=== PATIENT | female | born 1940 | race Caucasian/White ===

== ENCOUNTER 2017-01-01 | Outpatient (CLI) | payer MEDICARE, OTHER | END 2017-01-01 18:47 | disposition critical access hospital (66) | CPT/HCPCS: A0425; A0427 ==

== ENCOUNTER 2017-01-01 19:13 | Observation (INO) | payer MEDICARE, OTHER ==
[2017-01-01] MEDS ORDERED: ASPIRIN CHEW 81 MG TABLET PO STA (21:03)
[2017-01-01] MEDS ORDERED: ASPIRIN CHEW 81 MG TABLET ONE (21:04)
[2017-01-01] MEDS ORDERED: ONDANSETRON 4 MG/2 ML VIAL IVP PRN (21:27)
[2017-01-01] MEDS ORDERED: SODIUM CHLORIDE FLUSH 0.9% 10 ML SYRINGE IVP PRN (21:27)
[2017-01-01] MEDS ORDERED: ACETAMINOPHEN 325 MG TABLET PO PRN (21:27)
[2017-01-01] MEDS: SODIUM CHLORIDE FLUSH 0.9% 10 ML SYRINGE IVP SCH (23:00)
[2017-01-02] MEDS: SODIUM CHLORIDE FLUSH 0.9% 10 ML SYRINGE IVP SCH (06:31)
[2017-01-02] MEDS ORDERED: LEVOTHYROXINE 88 MCG TABLET PO SCH (07:00)
[2017-01-02] MEDS ORDERED: ASPIRIN CHEW 81 MG TABLET PO SCH (09:00)
[2017-01-02] MEDS ORDERED: POLYETHYLENE GLYCOL 3350 17 GM PACKET PO SCH (09:00)
[2017-01-02] MEDS ORDERED: ENOXAPARIN 40 MG/0.4 ML SYRINGE SUBQ SCH (09:00)
[2017-01-02] MEDS ORDERED: ATORVASTATIN 40 MG TABLET PO SCH (21:00)
== END 2017-01-02 17:36 | disposition home or self-care (01) ==
DX: G45.9 Transient cerebral ischemic attack, unspecified (principal); R31.29 Other microscopic hematuria; E03.9 Hypothyroidism, unspecified; R60.0 Localized edema; Z85.3 Personal history of malignant neoplasm of breast; Z82.49 Family history of ischemic heart disease and other diseases of the circulatory system; Z92.3 Personal history of irradiation; Z87.891 Personal history of nicotine dependence
CPT/HCPCS: 36415; 70450; 70551; 80048; 80053; 80061; 81001; 83036; 83690; 83721; 83735; 83880; 84100; 85025; 85610; 85730; 92610; 93005; 93010; 93306; 93880; 96372; 97162; 99284; 99285; A9270; G0378; G8978; G8979; G8980; G8996; G8997; G8998; J1650

== ENCOUNTER 2017-01-29 14:32 | Outpatient (CLI) | payer MEDICARE, OTHER | END 2017-01-29 14:33 | disposition home or self-care (01) | DX: E55.9 Vitamin D deficiency, unspecified (principal); E03.9 Hypothyroidism, unspecified; R53.83 Other fatigue ==

== ENCOUNTER 2017-02-02 14:08 | Outpatient (CLI) | payer MEDICARE, OTHER | END 2017-02-02 14:09 | disposition home or self-care (01) | DX: M81.0 Age-related osteoporosis without current pathological fracture (principal) ==

== ENCOUNTER 2017-02-13 11:07 | Outpatient (CLI) | payer MEDICARE, OTHER | END 2017-02-13 11:08 | disposition home or self-care (01) | DX: D64.9 Anemia, unspecified (principal) ==

== ENCOUNTER 2017-04-25 11:11 | Outpatient (CLI) | payer MEDICARE, OTHER ==
[2017-04-25 18:10] LABS: BILIRUBIN,URINE NEGATIVE (NEGATIVE)
[2017-04-25 18:13] LABS: ALBUMIN/GLOBULIN RATIO 1.4 (1.0-2.2); BILIRUBIN,TOTAL 0.8 mg/dL (0.2-1.0); CALCIUM 8.9 mg/dL (8.5-10.3); CREATININE 0.8 mg/dL (0.4-1.0); TOTAL PROTEIN 6.8 g/dL (6.7-8.2)
[2017-04-25 18:30] LABS: BASOPHILS # (AUTO) 0.1 10^3/uL (0.0-0.1); EOSINOPHILS # (AUTO) 0.2 10^3/uL (0.0-0.7); EOSINOPHILS % (AUTO) 3.9 %; HCT - HEMATOCRIT 37.9 % (37.0-47.0); LYMPHOCYTES # (AUTO) 1.3 10^3/uL (1.5-3.5); MEAN CORPUSCULAR HEMOGLOBIN 30.3 pg (27.0-31.0); MEAN CORPUSCULAR HGB CONC 34.2 g/dL (32.0-36.0); MEAN CORPUSCULAR VOLUME 88.6 fL (81.0-99.0); MEAN PLATELET VOLUME 10.1 fL (7.9-10.8); MONOCYTES # (AUTO) 0.4 10^3/uL (0.0-1.0); MONOCYTES % (AUTO) 7.3 %; NEUTROPHILS % (AUTO) 65.8 %; NUCLEATED RED BLOOD CELLS AUTO 0.1 /100WBC; RED BLOOD COUNT 4.28 10^6/uL (4.20-5.40); RED CELL DISTRIBUTION WIDTH 13.6 % (12.0-15.0)
[2017-04-25 19:09] LABS: WBC,URINE 0-3 /HPF (0-5)
== END 2017-04-25 11:12 | disposition home or self-care (01) ==
LOC: LAB.F 11:11
PROVIDERS: ATTEND Internal Medicine
DX: I49.1 Atrial premature depolarization (principal); R60.0 Localized edema; I49.9 Cardiac arrhythmia, unspecified
CPT/HCPCS: 36415; 80053; 81001; 82043; 82570; 83880; 85025

== ENCOUNTER 2017-05-09 12:32 | Outpatient (CLI) | payer MEDICARE, OTHER ==
[2017-05-09 18:30] LABS: BILIRUBIN,URINE NEGATIVE (NEGATIVE)
[2017-05-09 18:36] LABS: ALBUMIN/GLOBULIN RATIO 1.4 (1.0-2.2); BILIRUBIN,TOTAL 0.7 mg/dL (0.2-1.0); CALCIUM 8.6 mg/dL (8.5-10.3); CREATININE 0.7 mg/dL (0.4-1.0); MAGNESIUM 2.1 mg/dL (1.7-2.8); TOTAL PROTEIN 6.9 g/dL (6.7-8.2)
[2017-05-09 18:39] LABS: BASOPHILS # (AUTO) 0.1 10^3/uL (0.0-0.1); BASOPHILS % (AUTO) 1.2 %; EOSINOPHILS # (AUTO) 0.3 10^3/uL (0.0-0.7); HCT - HEMATOCRIT 37.9 % (37.0-47.0); HGB - HEMOGLOBIN 12.7 g/dL (12.0-16.0); LYMPHOCYTES # (AUTO) 1.5 10^3/uL (1.5-3.5); LYMPHOCYTES % (AUTO) 28.3 %; MEAN CORPUSCULAR HGB CONC 33.5 g/dL (32.0-36.0); MEAN CORPUSCULAR VOLUME 89.7 fL (81.0-99.0); MEAN PLATELET VOLUME 9.7 fL (7.9-10.8); MONOCYTES # (AUTO) 0.4 10^3/uL (0.0-1.0); MONOCYTES % (AUTO) 6.6 %; NEUTROPHILS # (AUTO) 3.2 10^3/uL (1.5-6.6); NEUTROPHILS % (AUTO) 58.9 %; NUCLEATED RED BLOOD CELLS AUTO 0.2 /100WBC; RED BLOOD COUNT 4.23 10^6/uL (4.20-5.40); RED CELL DISTRIBUTION WIDTH 14.1 % (12.0-15.0); UNCORRECTED WHITE BLOOD COUNT 5.4 x10^3/uL; WHITE BLOOD COUNT 5.4 x10^3/uL (4.8-10.8)
[2017-05-09 18:47] LABS: UR CULTURE IF IND NOT INDICATED; WBC,URINE 0-3 /HPF (0-5)
== END 2017-05-09 12:33 | disposition home or self-care (01) ==
LOC: LAB.F 12:32
PROVIDERS: ATTEND Physician Assistant Medical
DX: R42 Dizziness and giddiness (principal); E55.9 Vitamin D deficiency, unspecified; Z79.899 Other long term (current) drug therapy
CPT/HCPCS: 36415; 80053; 81001; 82306; 83735; 85025; 87086

== ENCOUNTER 2017-05-10 12:52 | Outpatient (CLI) | payer MEDICARE, OTHER | END 2017-05-10 12:53 | disposition home or self-care (01) | LOC: DI 12:52 | PROVIDERS: ATTEND Internal Medicine | DX: R60.0 Localized edema (principal); I34.0 Nonrheumatic mitral (valve) insufficiency | CPT/HCPCS: 93306 ==

== ENCOUNTER 2017-06-14 15:25 | Outpatient (CLI) | payer MEDICARE, OTHER ==
[2017-06-14 19:07] LABS: ALBUMIN/GLOBULIN RATIO 1.5 (1.0-2.2); BILIRUBIN,TOTAL 0.5 mg/dL (0.2-1.0); CALCIUM 8.8 mg/dL (8.5-10.3); CREATININE 0.7 mg/dL (0.4-1.0); POTASSIUM 3.9 mmol/L (3.5-5.0); TOTAL PROTEIN 7.4 g/dL (6.7-8.2)
== END 2017-06-14 15:26 | disposition home or self-care (01) ==
LOC: LAB.F 15:25
PROVIDERS: ATTEND Psychiatry & Neurology Neurology
DX: G31.84 Mild cognitive impairment of uncertain or unknown etiology (principal)
CPT/HCPCS: 36415; 80053

== ENCOUNTER 2017-08-20 13:23 | Outpatient (CLI) | payer MEDICARE, OTHER ==
[2017-08-20 18:37] LABS: ALBUMIN/GLOBULIN RATIO 1.2 (1.0-2.2); BILIRUBIN,TOTAL 0.6 mg/dL (0.2-1.0); CALCIUM 8.5 mg/dL (8.5-10.3); CREATININE 0.8 mg/dL (0.4-1.0); POTASSIUM 3.1 mmol/L (3.5-5.0); TOTAL PROTEIN 7.5 g/dL (6.7-8.2)
[2017-08-20 18:38] LABS: BASOPHILS % (AUTO) 0.4 %; HGB - HEMOGLOBIN 14.6 g/dL (12.0-16.0); LYMPHOCYTES # (AUTO) 0.8 10^3/uL (1.5-3.5); LYMPHOCYTES % (AUTO) 19.3 %; MEAN CORPUSCULAR HEMOGLOBIN 30.2 pg (27.0-31.0); MEAN CORPUSCULAR HGB CONC 34.1 g/dL (32.0-36.0); MEAN CORPUSCULAR VOLUME 88.6 fL (81.0-99.0); MEAN PLATELET VOLUME 9.5 fL (7.9-10.8); MONOCYTES # (AUTO) 0.4 10^3/uL (0.0-1.0); NEUTROPHILS % (AUTO) 71.3 %; NUCLEATED RED BLOOD CELLS AUTO 0.1 /100WBC; RED BLOOD COUNT 4.85 10^6/uL (4.20-5.40); RED CELL DISTRIBUTION WIDTH 13.4 % (12.0-15.0); UNCORRECTED WHITE BLOOD COUNT 4.7 x10^3/uL; WHITE BLOOD COUNT 4.3 x10^3/uL (4.8-10.8)
[2017-08-20 19:33] LABS: PLATELET MORPHOLOGY PLATELET CLUMPING (NORMAL)
[2017-08-20 19:34] LABS: WBC MORPHOLOGY (MULTIPLE) NORMAL APPEARANCE (NORMAL)
== END 2017-08-20 13:24 | disposition home or self-care (01) ==
LOC: LAB.F 13:23
PROVIDERS: ATTEND Internal Medicine
DX: J20.9 Acute bronchitis, unspecified (principal); R63.0 Anorexia; E55.9 Vitamin D deficiency, unspecified
CPT/HCPCS: 36415; 80053; 82306; 85025

== ENCOUNTER 2017-08-22 14:10 | Emergency (ER) | payer MEDICARE, OTHER ==
[2017-08-22 14:15] VITALS: BP 105/65
[2017-08-22] MEDS ORDERED: DEXAMETHASONE 10 MG/ML VIAL PO STA (14:31)
--- NOTE | 2017-08-22 14:35 | ED Physician Documentation ---
PD HPI URI - Stated complaint Stated Complaint: COUGH/WEAKNESS - Chief complaint Chief Complaint: Heent - History obtained from History obtained from: Patient, Family - History of Present Illness Timing - onset: How many days ago (10) Timing duration: Days (10) Timing details: Gradual onset, Still present Associated symptoms: Nasal congestion, Rhinorrhea, Dry cough, Dyspnea, Other ( fatigue). No: Fever Contributing factors: Sick contact ( sick with similar) Improves by: Rest Similar symptoms before: Has not had sx before Recently seen: Clinic - Additional information Additional information: 77-year-old female has a cough and congestion for the past 10 days. She has had a decrease in her energy and feels quite poorly. She denies fever she denies vomiting she denies sinus pain but she does have a lot of nasal congestion and dry cough. She has been taking some doxycycline for the past 3 days and this is not helped. Review of Systems Constitutional: reports: Myalgias, Fatigue. denies: Fever Eyes: denies: Decreased vision Ears: denies: Ear pain Nose: reports: Rhinorrhea / runny nose, Congestion Throat: denies: Sore throat Cardiac: denies: Chest pain / pressure, Palpitations Respiratory: reports: Dyspnea, Cough GI: denies: Abdominal Pain, Nausea, Vomiting : denies: Dysuria Skin: denies: Rash Musculoskeletal: denies: Neck pain, Back pain, Extremity pain Neurologic: reports: Generalized weakness. 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 : None HEENT: None Psych: None Musculoskeletal: None Derm: None - Past Surgical History Past Surgical History: Yes - Present Medications Home Medications: Ambulatory Orders Medication Instructions Recorded Confirmed Levothyroxine [Synthroid] 88 mcg PO DAILY 08/18/14 01/01/17 Aspirin Chewable [St Rito 81 mg PO DAILY #60 tablet 01/02/17 Aspirin] Atorvastatin [Lipitor] 40 mg PO QPM #30 tablet 01/02/17 Amox/Clav 875/125 [Augmentin] 1 each PO Q12H #20 tablet 08/22/17 - Allergies Allergies/Adverse Reactions: Allergies Allergy/AdvReac Type Severity Reaction Status Date / Time Penicillins Allergy Rash Verified 08/22/17 14:14 Sulfa (Sulfonamide Allergy Hives Verified 08/22/17 14:14 Antibiotics) - Social History Does the pt smoke?: No Smoking Status: Never smoker Does the pt drink ETOH?: No Does the pt have substance abuse?: No - Immunizations Immunizations are current?: No - POLST Patient has POLST: No PD ED PE NORMAL - Vitals Vital signs reviewed: Yes (normal ) - General General: No acute distress, Well developed/nourished, Other (vacant stare) - HEENT HEENT: Atraumatic, PERRL, EOMI, Other (both TM's are erythematous along the umbo with rounding of the umbo ) - Neck Neck: Supple, no meningeal sign, No bony TTP - Cardiac Cardiac: RRR, No murmur - Respiratory Respiratory: No respiratory distress, Other (ronchi to the right lung field .) - Abdomen Abdomen: Soft, Non tender - Back Back: No CVA TTP, No spinal TTP - Derm Derm: Normal color, Warm and dry, No rash - Extremities Extremities: No deformity, No edema - Neuro Neuro: No motor deficit, No sensory deficit, Normal speech - Psych Psych: Normal mood, Other (affect is blunted. ) Results - Vitals Vitals: Vital Signs - 24 hr 08/22/17 14:12 Temperature 36.5 C Heart Rate 70 Respiratory 20 Rate Blood Pressure 105/65 O2 Saturation 95 Oxygen O2 Source Room air - Rads (name of study) 2 view chest Radiology: Prelim report reviewed (Impression: Airway thickening without focal pneumonia.), EMP read indepedently (On my read this x-ray shows infiltrate in the right base consistent with findings on examination.), See rad report PD MEDICAL DECISION MAKING - ED course Complexity details: reviewed old records, reviewed results, re-evaluated patient , considered differential, d/w patient, d/w family ED course: 77-year-old female with an upper respiratory tract infection has rhonchi on examination and corresponding findings on her chest x-ray with a subtle infiltrate in the right base. She is administered dexamethasone orally here in the emergency department and she is given an injection of Rocephin IM. She has an allergy to penicillin and she states that she has taken amoxicillin without problem. We will switch her antibiotic to Augmentin. Departure - Departure Disposition: 01 Home, Self Care Clinical Impression: Otitis media Qualifiers: Otitis media type: suppurative Chronicity: acute Laterality: bilateral Recurrence: recurrent Spontaneous tympanic membrane rupture: without spontaneous rupture Qualified Code(s): H66.006 - Acute suppurative otitis media without spontaneous rupture of ear drum, recurrent, bilateral Pneumonia Qualifiers: Pneumonia type: due to unspecified organism Laterality: right Lung location: lower lobe of lung Qualified Code(s): J18.1 - Lobar pneumonia, unspecified organism Condition: Stable Instructions: ED Otitis Media Acute Adult, ED Pneumonia Adult Follow-Up: Vale Arndt PA-C [Primary Care Provider] - Prescriptions: Amox/Clav 875/125 [Augmentin] 1 each PO Q12H #20 tablet
[2017-08-22] MEDS ORDERED: CHERRY SYRUP 10 ML UDC PO ONE (14:40)
[2017-08-22] MEDS ORDERED: DEXAMETHASONE 10 MG/ML VIAL ONE (14:40)
[2017-08-22] MEDS ORDERED: cefTRIAXone 1 GM VIAL IM STA (15:49)
--- NOTE | 2017-08-22 15:55 | XRAY Preliminary Report ---
Exam: XR Chest 2 View PA/LAT IMPRESSION: Airway thickening without focal pneumonia. [id number]
--- NOTE | 2017-08-22 15:58 | XRAY Report ---
EXAM: CHEST RADIOGRAPHY EXAM DATE: 08/22/2017 03:35 PM. CLINICAL HISTORY: Cough and right sided rhonchi. COMPARISON: 01/10/2011. TECHNIQUE: 2 views. FINDINGS: Lungs/Pleura: Bibasilar airway thickening and interstitial prominence appears without significant int erval change. Lung volumes are normal. Negative for pleural effusion and pneumothorax. Mediastinum: Heart size is normal. There is mild aortic arch atherosclerotic calcification unchanged. Other: None. IMPRESSION: Airway thickening without focal pneumonia. [facility] Referring Provider Line: [phone] SITE ID: [id number]
[2017-08-22] MEDS ORDERED: cefTRIAXone 500 MG VIAL ONE (16:12)
[2017-08-22] MEDS ORDERED: LIDOCAINE 1% 2 ML VIAL ONE (16:12)
[2017-08-22] MEDS ORDERED: cefTRIAXone 1 GM VIAL ONE (16:16)
== END 2017-08-22 16:36 | disposition home or self-care (01) ==
LOC: ED 14:10
DX: H66.006 Acute suppurative otitis media without spontaneous rupture of ear drum, recurrent, bilateral (principal); J18.9 Pneumonia, unspecified organism; I10 Essential (primary) hypertension; E03.9 Hypothyroidism, unspecified; F03.90 Unspecified dementia, unspecified severity, without behavioral disturbance, psychotic disturbance, mood disturbance, and anxiety; Z79.82 Long term (current) use of aspirin
CPT/HCPCS: 71020; 96372; 99283; A9270

== ENCOUNTER 2017-11-08 10:13 | Outpatient (CLI) | payer MEDICARE, OTHER | END 2017-11-08 10:14 | disposition short-term general hospital (02) | LOC: EMS 10:13 | PROVIDERS: ATTEND Surgery | DX: R42 Dizziness and giddiness (principal); R20.2 Paresthesia of skin | CPT/HCPCS: A0425; A0427 ==

== ENCOUNTER 2017-11-22 10:38 | Outpatient (CLI) | payer MEDICARE, OTHER ==
[2017-11-22 11:37] LABS: CHOL/HDL RATIO 2.7 (<4.4); CHOLESTEROL 125 mg/dL; HDL CHOLESTEROL 47 mg/dL
[2017-11-22 12:02] LABS: LDL CHOLESTEROL,DIRECT 71 mg/dL; LDLD/HDL RATIO 1.5 (<4.4)
== END 2017-11-22 10:39 | disposition home or self-care (01) ==
LOC: LAB 10:38
PROVIDERS: ATTEND Physician Assistant Medical
DX: E78.5 Hyperlipidemia, unspecified (principal); G45.8 Other transient cerebral ischemic attacks and related syndromes; Z79.890 Hormone replacement therapy
CPT/HCPCS: 36415; 80061; 81599; 82670; 83721; 85613; 85730

== ENCOUNTER 2017-12-10 18:46 | Emergency (ER) | payer MEDICARE, OTHER ==
[2017-12-10 18:57] VITALS: BP 113/56
--- NOTE | 2017-12-10 19:07 | ED Physician Documentation ---
PD HPI OPHTHO - Stated complaint Stated Complaint: BLOOD IN EYE - Chief complaint Chief Complaint: Heent - History obtained from History obtained from: Patient - History of Present Illness Timing - onset: Other (She was playing cards with friends today and they noticed her eye was red. Her corroborated this. She is asymptomatic without visual changes. 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 : None HEENT: None Psych: None Musculoskeletal: None Derm: None - Past Surgical History Past Surgical History: Yes - Present Medications Home Medications: Ambulatory Orders Medication Instructions Recorded Confirmed Levothyroxine [Synthroid] 88 mcg PO DAILY 08/18/14 12/10/17 Atorvastatin [Lipitor] 40 mg PO QPM #30 tablet 01/02/17 12/10/17 Clopidogrel [Plavix] 75 mg PO DAILY 12/10/17 12/10/17 - Allergies Allergies/Adverse Reactions: Allergies Allergy/AdvReac Type Severity Reaction Status Date / Time Penicillins Allergy Rash Verified 12/10/17 18:57 Sulfa (Sulfonamide Allergy Hives Verified 12/10/17 18:57 Antibiotics) - Social History Does the pt smoke?: No Smoking Status: Never smoker Does the pt drink ETOH?: No Does the pt have substance abuse?: No - Immunizations Immunizations are current?: No - POLST Patient has POLST: No PD ED PE NORMAL - Vitals Vital signs reviewed: Yes - General General: Alert and oriented X 3, No acute distress - HEENT HEENT: PERRL, EOMI, Other (She has a right sided lateral and inferior subconjunctival hemorrhage) - Neck Neck: Supple, no meningeal sign, No bony TTP - Neuro Neuro: Alert and oriented X 3, Normal speech - Psych Psych: Normal mood, Normal affect Results - Vitals Vitals: Vital Signs - 24 hr 12/10/17 18:50 Temperature 36.3 C L Heart Rate 61 Respiratory 18 Rate Blood Pressure 113/56 L O2 Saturation 100 Oxygen O2 Source Room air Departure - Departure Disposition: 01 Home, Self Care Clinical Impression: Subconjunctival hemorrhage of right eye Condition: Good Record reviewed to determine appropriate education?: Yes Instructions: ED Eye Injury Subconj Hemorrhage
== END 2017-12-10 19:10 | disposition home or self-care (01) ==
LOC: ED 18:46
DX: H11.31 Conjunctival hemorrhage, right eye (principal); Z86.73 Personal history of transient ischemic attack (TIA), and cerebral infarction without residual deficits; Z79.02 Long term (current) use of antithrombotics/antiplatelets
CPT/HCPCS: 99282

== ENCOUNTER 2018-01-07 15:24 | Outpatient (CLI) | payer MEDICARE, OTHER ==
[2018-01-07 18:04] LABS: BASOPHILS % (AUTO) 0.5 %; EOSINOPHILS # (AUTO) 0.2 10^3/uL (0.0-0.7); EOSINOPHILS % (AUTO) 3.5 %; HGB - HEMOGLOBIN 13.2 g/dL (12.0-16.0); LYMPHOCYTES # (AUTO) 1.9 10^3/uL (1.5-3.5); LYMPHOCYTES % (AUTO) 31.9 %; MEAN CORPUSCULAR HEMOGLOBIN 29.8 pg (27.0-31.0); MEAN CORPUSCULAR HGB CONC 33.3 g/dL (32.0-36.0); MEAN CORPUSCULAR VOLUME 89.5 fL (81.0-99.0); MEAN PLATELET VOLUME 9.2 fL (7.9-10.8); MONOCYTES # (AUTO) 0.5 10^3/uL (0.0-1.0); MONOCYTES % (AUTO) 8.1 %; NEUTROPHILS # (AUTO) 3.4 10^3/uL (1.5-6.6); PLT - PLATELET COUNT 137 10^3/uL (130-450); RED BLOOD COUNT 4.42 10^6/uL (4.20-5.40); RED CELL DISTRIBUTION WIDTH 13.4 % (12.0-15.0)
== END 2018-01-07 15:25 | disposition home or self-care (01) ==
LOC: LAB.F 15:24
PROVIDERS: ATTEND Family Medicine
DX: R53.83 Other fatigue (principal)
CPT/HCPCS: 36415; 85025; 86308

== ENCOUNTER 2018-02-20 17:30 | Emergency (ER) | payer MEDICARE, OTHER ==
--- NOTE | 2018-02-20 19:04 | XRAY Preliminary Report ---
Exam: XR WRIST 4 VIEW RT IMPRESSION: Comminuted distal radius fracture without significant angulation. Ulnar styloid avulsion fracture. [facility] SITE ID: [id number]
--- NOTE | 2018-02-20 19:05 | XRAY Report ---
EXAM: RIGHT WRIST RADIOGRAPHY EXAM DATE: 02/20/2018 06:36 PM. CLINICAL HISTORY: Wrist injury. Fall on outstretched hand. COMPARISON: None. TECHNIQUE: 4 views. FINDINGS: Bones: Positive for a comminuted intra-articular fracture of the distal radius. There is no significa nt angulation. There is mild impaction. There is an avulsion fracture of the ulnar styloid. Joints: There is chronic degenerative disease with moderate joint space narrowing and sclerosis at th e first carpal metacarpal joints. No dislocation. Soft Tissues: There is soft tissue swelling around the distal forearm. IMPRESSION: Comminuted distal radius fracture without significant angulation. Ulnar styloid avulsion fracture. [facility] Referring Provider Line: [phone] SITE ID: [id number]
[2018-02-20] MEDS ORDERED: TETANUS/DIPHTHERIA/PERTUSSIS 0.5 ML SYRINGE IM ONE (20:17)
--- NOTE | 2018-02-20 20:17 | ED Physician Documentation ---
PD HPI UPPER EXT INJURY - Stated complaint Stated Complaint: R HAND INJ/ LAC - Chief complaint Chief Complaint: Ext Problem - History obtained from History obtained from: Patient - History of Present Illness Location: Left, Wrist Type of injury: Fall Where injury occurred: Home Timing - onset: Today Timing - details: Abrupt onset Worsened by: Moving, Palpating Associated symptoms: Swelling, Discolored Similar symptoms before: Has not had sx before Recently seen: Not recently seen - Additonal information Additional information: Patient is a 77 year old female who is presenting to the emergency department for wrist pain. patient was working in her garden when she was pulling a hose and tripped on a wooden plank landing on an outstretched left hand. Patient denies any other injury at this time. Review of Systems Constitutional: denies: Fever, Chills Eyes: reports: Reviewed and negative Ears: reports: Reviewed and negative Nose: reports: Reviewed and negative Throat: reports: Reviewed and negative Cardiac: reports: Reviewed and negative Respiratory: reports: Reviewed and negative GI: denies: Nausea, Vomiting : reports: Reviewed and negative Skin: reports: Abrasion (s). 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 : None HEENT: None Psych: None Musculoskeletal: None Derm: None - Past Surgical History Past Surgical History: Yes - Present Medications Home Medications: Ambulatory Orders Medication Instructions Recorded Confirmed Levothyroxine [Synthroid] 88 mcg PO DAILY 08/18/14 12/10/17 Atorvastatin [Lipitor] 40 mg PO QPM #30 tablet 01/02/17 12/10/17 Clopidogrel [Plavix] 75 mg PO DAILY 12/10/17 12/10/17 - Allergies Allergies/Adverse Reactions: Allergies Allergy/AdvReac Type Severity Reaction Status Date / Time Penicillins Allergy Rash Verified 12/10/17 18:57 Sulfa (Sulfonamide Allergy Hives Verified 12/10/17 18:57 Antibiotics) - Social History Does the pt smoke?: No Smoking Status: Never smoker Does the pt drink ETOH?: No Does the pt have substance abuse?: No - Immunizations Immunizations are current?: No - POLST Patient has POLST: No PD ED PE NORMAL - Vitals Vital signs reviewed: Yes - General General: Alert and oriented X 3 - HEENT HEENT: Atraumatic - Neck Neck: No bony TTP - Cardiac Cardiac: RRR - Respiratory Respiratory: No respiratory distress - Abdomen Abdomen: Non distended - Neuro Neuro: Alert and oriented X 3 Eye Opening: Spontaneous Motor: Obeys Commands Verbal: Oriented GCS Score: 15 PD ED PE EXPANDED - Extremities Extremities: Left wrist (tenderness and swelling of left wrist with mild angulation), Sensory intact, Vascular intact, Tendon intact Results - Vitals Vitals: Vital Signs - 24 hr 02/20/18 17:49 Temperature 36.8 C Heart Rate 64 Respiratory 18 Rate Blood Pressure 146/67 H O2 Saturation 91 L Oxygen O2 Source Room air - Rads (name of study) wrist x-ray Radiology: Final report received (comminuted fracture of left distal radius and ulnar styloid avulsion fx) PD MEDICAL DECISION MAKING - ED course Complexity details: reviewed old records, reviewed results, re-evaluated patient , considered differential, d/w patient, d/w family ED course: Patient was seen and examined at bedside. Patient had already been sent for imaging. Results were reviewed and patient had a distal radial fracture but was neurovascularly intact. Patient's abrasion was cleaned and patient was treated with tdap. Patient was placed in splint and was stable for discharge with outpatient follow up. Departure - Departure Disposition: 01 Home, Self Care Clinical Impression: Radial fracture Condition: Good Instructions: ED Fx Forearm Radius Ulna No Redu Requ Follow-Up: Piero Garcia MD [Provider Admit Priv/Credential] - Tomorrow Comments: Your symptoms today are being cause by a fracture in both your radius and ulna. You have been placed in a splint and will need to call the office of Dr. Garcia tomorrow. you should continue to ice your wrist and keep it elevated. You should return to the emergency department for loss of pulses, loss of feeling, new, worsening or uncontrollable symptoms.
[2018-02-20] MEDS ORDERED: oxyCODONE/ACET 5/325 Prepack 4 PO STA (20:40)
[2018-02-20 20:48] VITALS: BP 143/95
== END 2018-02-20 20:52 | disposition home or self-care (01) ==
LOC: ED 17:30
DX: S52.501A Unspecified fracture of the lower end of right radius, initial encounter for closed fracture (principal); W18.09XA Striking against other object with subsequent fall, initial encounter; Y93.H2 Activity, gardening and landscaping; Y92.007 Garden or yard of unspecified non-institutional (private) residence as the place of occurrence of the external cause; Z23 Encounter for immunization; F03.90 Unspecified dementia, unspecified severity, without behavioral disturbance, psychotic disturbance, mood disturbance, and anxiety; E03.9 Hypothyroidism, unspecified
CPT/HCPCS: 29125; 90471; 99283

== ENCOUNTER 2018-02-24 13:32 | Emergency (ER) | payer MEDICARE, OTHER ==
[2018-02-24 13:48] VITALS: BP 143/79
--- NOTE | 2018-02-24 13:54 | ED Physician Documentation ---
PD HPI UPPER EXT INJURY - Stated complaint Stated Complaint: R SHOULDER PX - Chief complaint Chief Complaint: Ext Problem - History obtained from History obtained from: Patient, Family () - History of Present Illness Location: Other (She fell a few days ago and broke her wrist. She realized after she got home that her shoulder was hurting quite a bit to. 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 HEENT: None Psych: None Musculoskeletal: None Derm: None - Past Surgical History Past Surgical History: Yes - Present Medications Home Medications: Ambulatory Orders Medication Instructions Recorded Confirmed Levothyroxine [Synthroid] 88 mcg PO DAILY 08/18/14 02/24/18 Atorvastatin [Lipitor] 40 mg PO QPM #30 tablet 01/02/17 02/24/18 Clopidogrel [Plavix] 75 mg PO DAILY 12/10/17 02/24/18 Oxycodone HCl/Acetaminophen 1 - 2 tab PO Q4H PRN #15 tablet 02/24/18 [Percocet 5-325 mg Tablet] - Allergies Allergies/Adverse Reactions: Allergies Allergy/AdvReac Type Severity Reaction Status Date / Time Penicillins Allergy Rash Verified 02/24/18 13:40 Sulfa (Sulfonamide Allergy Hives Verified 02/24/18 13:40 Antibiotics) - Social History Does the pt smoke?: No Smoking Status: Never smoker Does the pt drink ETOH?: No Does the pt have substance abuse?: No - Immunizations Immunizations are current?: No - POLST Patient has POLST: No PD ED PE NORMAL - Vitals Vital signs reviewed: Yes - General General: Alert and oriented X 3, No acute distress - Neck Neck: Supple, no meningeal sign, No bony TTP - Extremities Extremities: Other (Right arm is in a sugar tong splints, fingers are slightly swollen but she is warm and well perfused with normal sensation. He does have tenderness over the anterior part of the right glenohumeral joint without clavicular tenderness or deformity. She is only able to abduct a few degrees.) - Neuro Neuro: Alert and oriented X 3, Normal speech Results - Vitals Vitals: Vital Signs - 24 hr 02/24/18 02/24/18 13:36 13:48 Temperature 36.1 C L Heart Rate 60 Respiratory 16 Rate Blood Pressure 143/79 H O2 Saturation 99 Oxygen O2 Source Room air - Rads (name of study) R shoulder and humerus XRS Radiology: EMP read contemporaneously (negative) Departure - Departure Disposition: 01 Home, Self Care Clinical Impression: Radial fracture Qualifiers: Encounter type: initial encounter Radius location: distal Fracture type: closed Fracture morphology: Colles' Laterality: right Qualified Code(s): S52.531A - Colles' fracture of right radius, initial encounter for closed fracture Right shoulder strain Qualifiers: Encounter type: initial encounter Qualified Code(s): S46.911A - Strain of unspecified muscle, fascia and tendon at shoulder and upper arm level, right arm , initial encounter Condition: Good Record reviewed to determine appropriate education?: Yes Instructions: ED Fx Forearm Radius Ulna No Redu Requ Follow-Up: [facility] [Provider Group] - Tomorrow Prescriptions: Oxycodone HCl/Acetaminophen [Percocet 5-325 mg Tablet] 1 - 2 tab PO Q4H PRN #15 tablet PRN Reason: Pain Comments: Do not drink or drive while taking narcotic pain medication. Note that many narcotic pain relievers also contain Tylenol/acetaminophen. Please ensure that your total dose of acetaminophen from all sources does not exceed 3 g (3000 mg) per day. You may get constipated while on this medication. Take a stool softener such as Colace twice a day while you are on it. Also add an icag-cae-hanhzml laxative such as senna or MiraLAX on any day that you do not have a bowel movement. If you received a narcotic pain medication or sedative while in the emergency department, do not drive for the next 24 hours. Your blood pressure was elevated today on check into the emergency department. This does not mean that you have hypertension, it is a common phenomenon to come to the emergency department and have elevated blood pressure. I recommend that you see your primary care physician within the week to have it rechecked when you are feeling better.
--- NOTE | 2018-02-24 15:30 | XRAY Report ---
EXAM: RIGHT HUMERUS RADIOGRAPHY EXAM DATE: 02/24/2018 02:42 PM. CLINICAL HISTORY: Arm pain. COMPARISON: None. TECHNIQUE: 2 views. FINDINGS: Bones: Normal. No fractures or bone lesions. Joints: Alignment at the elbow and shoulder appears satisfactory. Soft Tissues: There is a cast around the right forearm and elbow. IMPRESSION: 1. No acute fracture or subluxation. Forearm cast. [facility] Referring Provider Line: [phone] SITE ID: [id number]
--- NOTE | 2018-02-24 15:30 | XRAY Preliminary Report ---
Exam: XR HUMERUS RT IMPRESSION: 1. No acute fracture or subluxation. Forearm cast. [facility] SITE ID: [id number]
--- NOTE | 2018-02-24 15:30 | XRAY Report ---
EXAM: RIGHT SHOULDER RADIOGRAPHY EXAM DATE: 02/24/2018 02:11 PM. CLINICAL HISTORY: Fall, shoulder pain. COMPARISON: None. TECHNIQUE: 3 views. FINDINGS: Bones: No fracture or bone destruction. Joints: The glenohumeral and acromioclavicular joints are normal. Soft tissues: No abnormal soft tissue calcification. IMPRESSION: Negative right shoulder. [facility] Referring Provider Line: [phone] SITE ID: [id number]
--- NOTE | 2018-02-24 15:30 | XRAY Preliminary Report ---
Exam: XR SHOULDER 3 VIEW RT IMPRESSION: Negative right shoulder. [facility] SITE ID: [id number]
== END 2018-02-24 16:47 | disposition home or self-care (01) ==
LOC: ED 13:32
DX: S52.531A Colles' fracture of right radius, initial encounter for closed fracture (principal); S46.911A Strain of unspecified muscle, fascia and tendon at shoulder and upper arm level, right arm, initial encounter; W19.XXXA Unspecified fall, initial encounter; F03.90 Unspecified dementia, unspecified severity, without behavioral disturbance, psychotic disturbance, mood disturbance, and anxiety; E03.9 Hypothyroidism, unspecified
CPT/HCPCS: 99283

== ENCOUNTER 2018-04-02 10:31 | Outpatient (CLI) | payer MEDICARE, OTHER ==
--- NOTE | 2018-04-07 16:52 | DEXA Report ---
DEXA SCAN: 04/02/2018 CLINICAL INDICATION: Osteoporosis. TECHNIQUE: Dual energy x-ray absorptiometry (DXA) was performed on a [employer] system. Regions measured are the AP spine, femoral neck, and, if needed, forearm. COMPARISON: 02/02/2017. In accordance with the International Society for Clinical Densitometry (ISCD) guidelines, data from previous exams may be reanalyzed using current recommendations and techniques. This is done to allow a more accurate basis for comparison with the current study. FINDINGS The data for the lumbar spine is as follows: REGION BMD (g/cm/cm) T-SCORE Z-SCORE L1 0.880 -2.1 -0.1 L2 0.920 -2.3 -0.3 L3 1.042 -1.3 0.7 L4 1.039 -1.3 0.7 L1-L4 0.978 -1.7 0.3 NOTE: All evaluable vertebrae are used for classification. The data for the hip is as follows: REGION BMD (g/cm/cm) T-SCORE Z-SCORE Neck 0.722 -2.3 -0.1 TOTAL 0.765 -1.9 0.1 NOTE: The femoral neck or total proximal femur, whichever is lowest, is used for classification. DEXA RESULTS SUMMARY: Spine SCAN DATE [age] BMD T-SCORE BMD CHANGE VS BASELINE BMD CHANGE VS PREVIOUS 04[age]02/2018 [age] 0.978 -- 0.051* 5.5* 02/02/2017 76.4 0[age]927 -- -- -- * Denotes significant change at the 95% confidence level. Denotes dissimilar scan types or analysis methods. DEXA RESULTS SUMMARY: Total hip SCAN DATE [age]GE BMD T-SCORE BMD CHANGE VS BASELINE BMD CHANGE VS PREVIOUS [birth year]02[birth year]2018 77.6 0.765 -- 0.017 2.3 02/02/2017 76.4 0.748 -- -- -- * Denotes significant change at the 95% confidence level. Denotes dissimilar scan types or analysis methods. IMPRESSION 1. WHO CLASSIFICATION BASED ON THE INTERNATIONAL REFERENCE STANDARD IS OSTEOPENIA. FRACTURE RISK IS INCREASED. 2. THERE HAS BEEN STATISTICALLY SIGNIFICANT INTERVAL INCREASE IN BONE MINERAL DENSITY OF THE LUMBAR SPINE FROM 02/02/2017. NO STATISTICALLY SIGNIFICANT INTERVAL CHANGE IN BONE MINERAL DENSITY OF THE LEFT HIP. RECOMMENDATION: Patients with diagnosis of osteoporosis or osteopenia should have regular bone mineral density assessment. For those eligible for Medicare, routine testing is allowed once every 2 years. Testing frequency can be increased for patients who have rapidly progressing disease or for those who are receiving medical therapy to restore bone mass. COMMENT World Health Organization (WHO) definitions for osteoporosis and osteopenia: NORMAL BMD: T-score at 1.0 or higher, fracture risk is low. OSTEOPENIA BMD: T-score between 1.0 and -2.5, fracture risk is increased. OSTEOPOROSIS BMD: T-score at 2.5 or lower, fracture risk high. National Osteoporosis Foundation recommends: 1. Obtain adequate dietary calcium (at least 1200 mg per day) and vitamin D (400 -800 international units per day). 2. Participate, as appropriate, in regular weightbearing and muscle- strengthening exercise. 3. Avoid tobacco use and reduce alcohol and caffeine intake. 4. For more detailed information see the website at www.NOF.org. TD: 04/02/2018 12:52 LIAM
== END 2018-04-02 10:32 | disposition home or self-care (01) ==
LOC: DI 10:31
PROVIDERS: ATTEND Internal Medicine Endocrinology, Diabetes & Metabolism
DX: M85.88 Other specified disorders of bone density and structure, other site (principal)
CPT/HCPCS: 77080

== ENCOUNTER 2018-04-09 08:38 | Day surgery (SDC) | payer MEDICARE, OTHER ==
[2018-04-09] MEDS ORDERED: LACTATED RINGERS 1,000 ML IV ONE (08:41)
[2018-04-09] MEDS ORDERED: fentaNYL 100 MCG/2 ML VIAL IVP ONE (10:07)
[2018-04-09] MEDS ORDERED: MIDAZOLAM 2 MG/2 ML VIAL IVP ONE (10:07)
[2018-04-09 11:16] VITALS: BP 99/55
== END 2018-04-09 08:39 | disposition home or self-care (01) ==
LOC: SDS 08:38
PROVIDERS: ATTEND Surgery
PROC: 0DBK8ZX Excision of Ascending Colon, Via Natural or Artificial Opening Endoscopic, Diagnostic (ICD-10-PCS; principal; 2018-04-09 09:45)
DX: Z12.11 Encounter for screening for malignant neoplasm of colon (principal); D12.2 Benign neoplasm of ascending colon; G47.30 Sleep apnea, unspecified; Z86.73 Personal history of transient ischemic attack (TIA), and cerebral infarction without residual deficits; Z79.82 Long term (current) use of aspirin; Z87.891 Personal history of nicotine dependence
CPT/HCPCS: 45380; J7120; 88305

== ENCOUNTER 2018-04-11 10:02 | Outpatient (CLI) | payer MEDICARE, OTHER ==
[2018-04-11 18:08] LABS: BASOPHILS # (AUTO) 0.1 10^3/uL (0.0-0.1); BASOPHILS % (AUTO) 1.1 %; EOSINOPHILS # (AUTO) 0.3 10^3/uL (0.0-0.7); EOSINOPHILS % (AUTO) 6.9 %; HGB - HEMOGLOBIN 12.6 g/dL (12.0-16.0); LYMPHOCYTES # (AUTO) 1.4 10^3/uL (1.5-3.5); LYMPHOCYTES % (AUTO) 30.5 %; MEAN CORPUSCULAR HEMOGLOBIN 29.6 pg (27.0-31.0); MEAN CORPUSCULAR HGB CONC 32.8 g/dL (32.0-36.0); MEAN CORPUSCULAR VOLUME 90.3 fL (81.0-99.0); MEAN PLATELET VOLUME 9.7 fL (7.9-10.8); MONOCYTES # (AUTO) 0.4 10^3/uL (0.0-1.0); NEUTROPHILS # (AUTO) 2.5 10^3/uL (1.5-6.6); NEUTROPHILS % (AUTO) 53.5 %; PLT - PLATELET COUNT 167 10^3/uL (130-450); RED BLOOD COUNT 4.24 10^6/uL (4.20-5.40); RED CELL DISTRIBUTION WIDTH 13.7 % (12.0-15.0); WHITE BLOOD COUNT 4.7 x10^3/uL (4.8-10.8)
[2018-04-11 18:38] LABS: ALBUMIN/GLOBULIN RATIO 1.4 (1.0-2.2); ALKALINE PHOSPHATASE 60 IU/L (42-121); ALT ALANINE AMINOTRANSFERASE 16 IU/L (10-60); AST ASPARTATE AMINOTRANSFERASE 28 IU/L (10-42); BILIRUBIN,TOTAL 0.7 mg/dL (0.2-1.0); BUN - BLOOD UREA NITROGEN 6 mg/dL (6-20); CHOL/HDL RATIO 4.1 (<4.4); CHOLESTEROL 172 mg/dL; CREATININE 0.5 mg/dL (0.4-1.0); GFR - MDRD 120 (>89); HDL CHOLESTEROL 42 mg/dL; LDL CHOLESTEROL,CALCULATED 119 mg/dL; LDL/HDL RATIO 2.8 (<4.4); TOTAL PROTEIN 6.9 g/dL (6.7-8.2); VLDL CHOLESTEROL 11 mg/dL
[2018-04-11 19:14] LABS: FREE T3 3.22 pg/mL (2.5-3.9)
[2018-04-11 19:16] LABS: THYROID STIMULATING HORMONE 1.78 uIU/mL (0.34-5.60)
[2018-04-11 19:18] LABS: FREE T4 (FREE THYROXINE) 0.89 ng/dL (0.58-1.64)
[2018-04-11 19:20] LABS: CALCIUM 8.6 mg/dL (8.5-10.3); CARBON DIOXIDE - CO2 27 mmol/L (21-32); CHLORIDE 101 mmol/L (101-111); GLUCOSE 83 mg/dL (70-100); SODIUM 136 mmol/L (135-145)
[2018-04-11 19:21] LABS: TESTOSTERONE, TOTAL < 10 ng/dL (0-50)
[2018-04-11 20:26] LABS: HB2 TOTAL 14.2 g/dL; HEMOGLOBIN A1C 0.49 g/dL; HEMOGLOBIN A1C % 5.3 % (4.6-6.2)
== END 2018-04-11 10:03 | disposition home or self-care (01) ==
LOC: LAB.F 10:02
PROVIDERS: ATTEND Naturopath
DX: Z00.00 Encounter for general adult medical examination without abnormal findings (principal); E03.9 Hypothyroidism, unspecified; E78.00 Pure hypercholesterolemia, unspecified; R53.83 Other fatigue; N95.1 Menopausal and female climacteric states; Z79.890 Hormone replacement therapy
CPT/HCPCS: 36415; 80053; 80061; 81599; 82627; 83036; 83525; 83721; 84403; 84439; 84443; 84481; 85025; 86141

== ENCOUNTER 2018-11-01 08:55 | Outpatient (CLI) | payer MEDICARE, OTHER ==
[2018-11-01 17:49] LABS: BILIRUBIN,URINE NEGATIVE (NEGATIVE); GLUCOSE, URINE (UA) NEGATIVE (NEGATIVE); KETONES,URINE (UA) NEGATIVE (NEGATIVE); LEUKOCYTE ESTERASE, URINE NEGATIVE (NEGATIVE); NITRITE,URINE NEGATIVE (NEGATIVE); OCCULT BLOOD,URINE TRACE-LYSE (NEGATIVE); PROTEIN,URINE NEGATIVE (NEGATIVE); UROBILINOGEN,URINE 0.2 (NORMAL) E.U./dL (NORMAL)
[2018-11-01 17:58] LABS: CLARITY,URINE CLEAR (CLEAR)
[2018-11-01 18:00] LABS: ALBUMIN 3.8 g/dL (3.2-5.5); ALBUMIN/GLOBULIN RATIO 1.4 (1.0-2.2); BILIRUBIN,TOTAL 0.9 mg/dL (0.2-1.0); CALCIUM 8.7 mg/dL (8.5-10.3); CREATININE 0.6 mg/dL (0.4-1.0); TOTAL PROTEIN 6.6 g/dL (6.7-8.2)
[2018-11-01 18:31] LABS: BACTERIA,URINE None Seen /HPF (None Seen); RBC,URINE 0-5 /HPF (0-5); SQUAMOUS EPITHELIAL CELL,UR FEW Squamous (<= Few)
== END 2018-11-01 08:56 | disposition home or self-care (01) ==
LOC: LAB.F 08:55
PROVIDERS: ATTEND Physician Assistant Medical
DX: E03.9 Hypothyroidism, unspecified (principal); Z79.899 Other long term (current) drug therapy
CPT/HCPCS: 36415; 80053; 81001; 84443; 87086

== ENCOUNTER 2018-11-04 09:20 | Outpatient (CLI) | payer MEDICARE, OTHER ==
[2018-11-06 13:21] LABS: THYROID PEROXIDASE ANTIBODIES <1 IU/mL (<9)
== END 2018-11-04 09:21 | disposition home or self-care (01) ==
LOC: LAB.F 09:20
PROVIDERS: ATTEND Physician Assistant Medical
DX: E23.0 Hypopituitarism (principal)
CPT/HCPCS: 36415; 84436; 84439; 84480; 84481; 86376; 86800

== ENCOUNTER 2018-12-12 09:13 | Outpatient (CLI) | payer MEDICARE, OTHER ==
[2018-12-12 10:30] LABS: ALBUMIN 3.8 g/dL (3.2-5.5); ALBUMIN/GLOBULIN RATIO 1.3 (1.0-2.2); BILIRUBIN,TOTAL 0.6 mg/dL (0.2-1.0); CALCIUM 8.9 mg/dL (8.5-10.3); CREATININE 0.6 mg/dL (0.4-1.0); TOTAL PROTEIN 6.7 g/dL (6.7-8.2)
== END 2018-12-12 09:14 | disposition home or self-care (01) ==
LOC: LAB.F 09:13
PROVIDERS: ATTEND Physician Assistant Medical
DX: E03.9 Hypothyroidism, unspecified (principal); Z79.899 Other long term (current) drug therapy
CPT/HCPCS: 36415; 80053; 84443

== ENCOUNTER 2019-02-28 09:39 | Outpatient (CLI) | payer MEDICARE, OTHER ==
[2019-02-28 17:57] LABS: THYROID STIMULATING HORMONE 13.21 uIU/mL (0.34-5.60)
[2019-02-28 18:00] LABS: FREE T4 (FREE THYROXINE) 0.67 ng/dL (0.58-1.64)
== END 2019-02-28 09:40 | disposition home or self-care (01) ==
LOC: LAB.F 09:39
PROVIDERS: ATTEND Physician Assistant Medical
DX: E03.9 Hypothyroidism, unspecified (principal); Z79.890 Hormone replacement therapy
CPT/HCPCS: 36415; 82670; 84439; 84443; 84481

== ENCOUNTER 2019-05-09 11:42 | Emergency (ER) | payer MEDICARE, OTHER ==
[2019-05-09 13:14] LABS: BASOPHILS # (AUTO) 0.1 10^3/uL (0.0-0.1); BASOPHILS % (AUTO) 0.9 %; EOSINOPHILS # (AUTO) 0.1 10^3/uL (0.0-0.7); EOSINOPHILS % (AUTO) 2.2 %; HGB - HEMOGLOBIN 12.9 g/dL (12.0-16.0); LYMPHOCYTES # (AUTO) 1.8 10^3/uL (1.5-3.5); LYMPHOCYTES % (AUTO) 30.7 %; MEAN CORPUSCULAR HEMOGLOBIN 30.4 pg (27.0-31.0); MEAN CORPUSCULAR HGB CONC 33.2 g/dL (32.0-36.0); MEAN CORPUSCULAR VOLUME 91.5 fL (81.0-99.0); MEAN PLATELET VOLUME 8.6 fL (7.9-10.8); MONOCYTES # (AUTO) 0.5 10^3/uL (0.0-1.0); MONOCYTES % (AUTO) 7.5 %; NEUTROPHILS # (AUTO) 3.5 10^3/uL (1.5-6.6); NEUTROPHILS % (AUTO) 58.7 %; PLT - PLATELET COUNT 153 10^3/uL (130-450); RED BLOOD COUNT 4.23 10^6/uL (4.20-5.40); RED CELL DISTRIBUTION WIDTH 13.9 % (12.0-15.0)
[2019-05-09 13:25] LABS: ALBUMIN 4.5 g/dL (3.2-5.5); ALBUMIN/GLOBULIN RATIO 1.4 (1.0-2.2); BILIRUBIN,TOTAL 0.7 mg/dL (0.2-1.0); CALCIUM 8.8 mg/dL (8.5-10.3); CREATININE 0.8 mg/dL (0.4-1.0); TOTAL PROTEIN 7.7 g/dL (6.7-8.2)
[2019-05-09] MEDS ORDERED: ONDANSETRON ODT 4 MG TABLET TL STA (13:42)
[2019-05-09] MEDS ORDERED: MECLIZINE 12.5 MG TABLET PO STA (13:43)
--- NOTE | 2019-05-09 13:55 | ED Physician Documentation ---
History of Present Illness - Stated complaint Stated Complaint: ELEV BP - Chief complaint Chief Complaint: Neuro - History obtained from History obtained from: Patient, Family () - History of Present Illness Timing: Today - Additonal information Additional information: The patient is a 78-year-old female who presents with dizziness that started earlier today. She also noticed that she was speaking more slowly than usual, and had associated nausea. She denies headache, visual disturbance, vomiting, numbness or weakness. Her symptoms are worse with movement of her head. She denies history of similar symptoms in the past. Past medical history is significant for TIAs 2, the last time one and a half years ago. Review of Systems Constitutional: reports: Other (dizziness). denies: Fever, Fatigue Eyes: denies: Decreased vision Ears: denies: Tinnitus/ringing Nose: denies: Congestion Throat: denies: Sore throat Cardiac: denies: Chest pain / pressure, Palpitations Respiratory: denies: Dyspnea, Cough GI: reports: Nausea. 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 : Other HEENT: None Psych: Depression, Anxiety Musculoskeletal: Osteoporosis Derm: None - Past Surgical History Past Surgical History: Yes /DIPLOMATIC INTERPRETER/TRANSLATOR: Other HEENT: Tonsil/Adenoidectomy - Present Medications Home Medications: Ambulatory Orders Medication Instructions Recorded Confirmed Levothyroxine [Synthroid] 88 mcg PO DAILY 08/18/14 04/09/18 Aspirin [Adult Aspirin Regimen] 81 mg PO DAILY 04/09/18 04/09/18 Memantine [Namenda] 5 mg PO DAILY 04/09/18 04/09/18 Meclizine HCl [Motion Sickness 25 mg PO Q6HR PRN #20 tablet 05/09/19 Relief] - Allergies Allergies/Adverse Reactions: Allergies Allergy/AdvReac Type Severity Reaction Status Date / Time Penicillins Allergy Rash Verified 02/24/18 13:40 Sulfa (Sulfonamide Allergy Hives Verified 02/24/18 13:40 Antibiotics) - Social History Does the pt smoke?: No Smoking Status: Never smoker Does the pt drink ETOH?: No Does the pt have substance abuse?: No - Immunizations Immunizations are current?: No - POLST Patient has POLST: No PD ED PE NORMAL - Vitals Vital signs reviewed: Yes (Borderline systolic hypertension.) - General General: Alert and oriented X 3, Well developed/nourished, Other (Demonstrates exacerbation of symptoms with rotation of her head to the right.) - HEENT HEENT: Atraumatic, Moist mucous membranes, Pharynx benign, Other (No nystagmus.) - Neck Neck: Supple, no meningeal sign, No adenopathy, No JVD - Cardiac Cardiac: RRR, No murmur - Respiratory Respiratory: No respiratory distress, Clear bilaterally - Abdomen Abdomen: Soft, Non tender - Back Back: No CVA TTP - Derm Derm: No rash - Extremities Extremities: No edema, No calf tenderness / cord - Neuro Neuro: Alert and oriented X 3, No motor deficit, No sensory deficit, Normal speech Eye Opening: Spontaneous Motor: Obeys Commands Verbal: Oriented GCS Score: 15 Results - Vitals Vitals: Oxygen O2 Source Room air - EKG (time done) 12:22 Rate: Rate (enter#) (56) Rhythm: NSR, Other (ectopic atrial rhythm) Hammond: LAD Intervals: Other (short MA interval) Ischemia: Normal ST segments Compare to prior EKG: Unchanged from prior EKG Computer interpretation: Disagree with computer (No ST elevation inferiorly.) - Labs Labs: Laboratory Tests 05/09/19 05/09/19 05/09/19 11:48 12:59 12:59 WBC 6.0 RBC 4.23 Hgb 12.9 Hct 38.7 MCV 91.5 MCH 30.4 MCHC 33.2 RDW 13.9 Plt Count 153 MPV 8.6 Neut # (Auto) 3.5 Lymph # (Auto) 1.8 [place] # (Auto) 0.5 Eos # (Auto) 0.1 Baso # (Auto) 0.1 Absolute Nucleated RBC 0.00 Nucleated RBC % 0.0 Sodium 139 Potassium 3.6 Chloride 98 L Carbon Dioxide 28 Anion Gap 13.0 BUN 18 Creatinine 0.8 Estimated GFR (MDRD) 69 L Glucose 93 POC Whole Bld Glucose 92 Calcium 8.8 Total Bilirubin 0.7 AST 30 ALT 20 Alkaline Phosphatase 55 Troponin I Total Protein 7.7 Albumin 4.5 Globulin 3.2 Albumin/Globulin Ratio 1.4 Lipase 33 Urine Color Urine Clarity Urine pH Ur Specific Sunbright Urine Protein Urine Glucose (UA) Urine Ketones Urine Occult Blood Urine Nitrite Urine Bilirubin Urine Urobilinogen Ur Leukocyte Esterase Ur Microscopic Review Urine Culture Comments 05/09/19 05/09/19 12:59 14:20 WBC RBC Hgb Hct MCV MCH MCHC RDW Plt Count MPV Neut # (Auto) Lymph # (Auto) [place] # (Auto) Eos # (Auto) Baso # (Auto) Absolute Nucleated RBC Nucleated RBC % Sodium Potassium Chloride Carbon Dioxide Anion Gap BUN Creatinine Estimated GFR (MDRD) Glucose POC Whole Bld Glucose Calcium Total Bilirubin AST ALT Alkaline Phosphatase Troponin I < 0.04 Total Protein Albumin Globulin Albumin/Globulin Ratio Lipase Urine Color YELLOW Urine Clarity CLEAR Urine pH 6.0 Ur Specific Sunbright <=1.005 Urine Protein NEGATIVE Urine Glucose (UA) NEGATIVE Urine Ketones NEGATIVE Urine Occult Blood TRACE-LYSE Urine Nitrite NEGATIVE Urine Bilirubin NEGATIVE Urine Urobilinogen 0.2 (NORMAL) Ur Leukocyte Esterase NEGATIVE Ur Microscopic Review NOT INDICATED Urine Culture Comments NOT INDICATED - Rads (name of study) Head CT Radiology: Prelim report reviewed, EMP read contemporaneously, See rad report (No acute intracranial abnormality.) PD MEDICAL DECISION MAKING - ED course Complexity details: reviewed results, re-evaluated patient, considered differential, d/w patient, d/w family ED course: The patient's presentation is most consistent with vertigo, most likely of a peripheral source. Benign positional vertigo is most likely. I doubt central nervous system cause for her symptoms. Head CT is normal, EKG reveals no acute ischemic or rhythm abnormalities, and CBC, chemistry panel and urinalysis are all unremarkable. Treatment in the emergency department included administration of meclizine 25 mg orally and Zofran 4 mg orally. On repeat evaluation the patient reports feeling subjectively back to normal, and demonstrates full cervical range of motion without recurrent dizziness. She is being discharged with a prescription for meclizine. I discussed with her and her the diagnosis, symptomatic treatment and outpatient follow-up, as well as potentially worrisome signs or symptoms that should prompt reevaluation in the emergency department. Departure - Departure Disposition: 01 Home, Self Care Clinical Impression: Vertigo Condition: Stable Instructions: Meclizine, ED Vertigo Unspecified Follow-Up: Vale Arndt PA-C [Primary Care Provider] - Prescriptions: Meclizine HCl [Motion Sickness Relief] 25 mg PO Q6HR PRN #20 tablet PRN Reason: Dizziness Comments: Take meclizine as prescribed if you develop recurrent symptoms. Follow-up with your primary physician within 1 to 2 weeks. Call to schedule appointment. Return to the emergency department if you develop increasing dizziness, persistent vomiting, or otherwise worsening symptoms. Discharge Date/Time: 05/09/19 15:58
--- NOTE | 2019-05-09 14:45 | CT Report ---
Reason: dizziness Procedure Date: 05/09/2019 Accession Number: [id number] / [id number] Procedure: CT - HEAD WO CPT Code: FULL RESULT: EXAM: CT HEAD EXAM DATE: 05/09/2019 02:32 PM. CLINICAL HISTORY: Dizziness. COMPARISON: HEAD W/O 01/01/2017 8:26 PM. TECHNIQUE: Multiaxial CT images were obtained from the foramen magnum to the vertex. Reformats: Sagittal and coronal. IV contrast: None. In accordance with CT protocol optimization, one or more of the following dose reduction techniques were utilized for this exam: automated exposure control, adjustment of mA and/or KV based on patient size, or use of iterative reconstructive technique. FINDINGS: Parenchyma: No intraparenchymal hemorrhage. No evidence of mass, midline shift, or CT findings of infarction. Griggs-white differentiation is distinct. Extraaxial Spaces: Normal for age. No subdural or epidural collections identified. Ventricles: Normal in size and position. Sinuses and Orbits: Imaged paranasal sinuses, orbits, and mastoids show no significant abnormality. Bones: No evidence of fracture or calvarial defect. Other: None. IMPRESSION: No acute intracranial abnormality. RADIA
[2019-05-09 15:08] LABS: BILIRUBIN,URINE NEGATIVE (NEGATIVE); GLUCOSE, URINE (UA) NEGATIVE (NEGATIVE); KETONES,URINE (UA) NEGATIVE (NEGATIVE); LEUKOCYTE ESTERASE, URINE NEGATIVE (NEGATIVE); NITRITE,URINE NEGATIVE (NEGATIVE); OCCULT BLOOD,URINE TRACE-LYSE (NEGATIVE); PROTEIN,URINE NEGATIVE (NEGATIVE); UROBILINOGEN,URINE 0.2 (NORMAL) E.U./dL (NORMAL)
[2019-05-09 15:10] LABS: CLARITY,URINE CLEAR (CLEAR)
[2019-05-09 15:59] VITALS: BP 135/74
== END 2019-05-09 15:58 | disposition home or self-care (01) ==
LOC: ED 11:42
DX: R42 Dizziness and giddiness (principal); I49.1 Atrial premature depolarization; Z86.73 Personal history of transient ischemic attack (TIA), and cerebral infarction without residual deficits; Z79.82 Long term (current) use of aspirin
CPT/HCPCS: 36415; 70450; 80053; 81003; 83690; 84484; 85025; 93005; 99283; 99284; A9270; Q0162; 81001; 87086

== ENCOUNTER 2019-05-13 11:01 | Outpatient (CLI) | payer MEDICARE, OTHER ==
--- NOTE | 2019-05-14 08:22 | DEXA Report ---
Reason: OSTEOPOROSIS,UNSPECIFIED Procedure Date: 05/13/2019 Accession Number: [id number] / [id number] Procedure: DEX - Dexa Spine and/or Hip CPT Code: FULL RESULT: EXAM: Dexa Spine and/or Hip DATE: 05/13/2019 11:42 AM CLINICAL HISTORY: OSTEOPOROSIS,UNSPECIFIED TECHNIQUE: Dual energy x-ray absorptiometry (DXA) was performed on a [employer] System. Regions measured are the AP Spine, femoral neck, and if needed forearm. COMPARISON: 04/02/2018. In accordance with the International Society for Clinical Densitometry (ISCD) guidelines, data from previous exams may be reanalyzed using current recommendations and techniques. This is done to allow a more accurate basis for comparison with the current study. FINDINGS: The data for the lumbar spine is as follows: BMD (g/cm/cm) T-SCORE Z-SCORE REGION L1 0.824 -2.5 -0.6 L2 0.908 -2.4 -0.5 L3 1.058 -1.2 0.8 L4 0.984 -1.8 0.1 TOTAL 0.951 -1.9 0.0 NOTE: All evaluable vertebrae are used for classification The data for the hip is as follows: BMD (g/cm/cm) T-SCORE Z-SCORE REGION Neck 0.687 -2.5 -0.4 TOTAL 0.741 -2.1 -0.1 NOTE: The femoral neck or total proximal femur, whichever is lowest, is used for classification. DXA RESULTS SUMMARY: Spine SCAN DATE [age] BMD CHANGE VS CHANGE VS PREVIOUS PREVIOUS % [age][birth year]2019 [age] 0.951 -0.027 -2.8 04/02/2018 77.6 0.978 0.051* 5.5* 02/02/2017 76.4 0.927 * Denotes significant change at the 95% confidence level. Denotes dissimilar scan types or analysis methods. DXA RESULTS SUMMARY: Hip SCAN DATE [age]GE BMD CHANGE VS CHANGE VS PREVIOUS PREVIOUS % [birth year][age][birth year]/2019 78.7 0.741 -0.024 -3.1 [birth year]/02/2018 77.6 0.765 0.017 2.3 02/02/2017 76.4 0.748 * Denotes significant change at the 95% confidence level. Denotes dissimilar scan types or analysis methods. IMPRESSION: THE WHO CLASSIFICATION BASED ON THE INTERNATIONAL REFERENCE STANDARD IS OSTEOPOROSIS. THE FRACTURE RISK IS HIGH. RECOMMENDATION: Patients with diagnosis of osteoporosis or osteopenia should have regular bone mineral density assessment. For those eligible for Medicare, routine testing is allowed once every 2 years. Testing frequency can be increased for patients who have rapidly progressing disease or for those who are receiving medical therapy to restore bone mass. COMMENT: World Health Organization (WHO) definitions for osteoporosis and osteopenia: NORMAL BMD: T-score at -1.0 or higher, fracture risk is low OSTEOPENIA BMD: T-score between -1.0 and -2.5, fracture risk is increased. OSTEOPOROSIS BMD: T-score at -2.5 or lower, fracture risk is high. National Osteoporosis Foundation recommends: 1. Obtain adequate dietary calcium (at least 1200 mg per day) and vitamin D (400-800 international units per day). 2. Participate, as appropriate, in regular weightbearing and muscle-strengthening exercise. 3. Avoid tobacco use and reduce alcohol and caffeine intake. 4. For more detailed information see the website at www.NOF.org.
== END 2019-05-13 11:02 | disposition home or self-care (01) ==
LOC: DI 11:01
PROVIDERS: ATTEND Internal Medicine Endocrinology, Diabetes & Metabolism
DX: M81.0 Age-related osteoporosis without current pathological fracture (principal)
CPT/HCPCS: 77080

== ENCOUNTER 2019-06-20 13:49 | Outpatient (CLI) | payer MEDICARE, OTHER ==
[2019-06-20 18:27] LABS: BASOPHILS # (AUTO) 0.1 10^3/uL (0.0-0.1); BASOPHILS % (AUTO) 0.9 %; EOSINOPHILS # (AUTO) 0.1 10^3/uL (0.0-0.7); EOSINOPHILS % (AUTO) 2.2 %; HGB - HEMOGLOBIN 11.9 g/dL (12.0-16.0); LYMPHOCYTES # (AUTO) 1.4 10^3/uL (1.5-3.5); LYMPHOCYTES % (AUTO) 25.8 %; MEAN CORPUSCULAR HEMOGLOBIN 30.1 pg (27.0-31.0); MEAN CORPUSCULAR HGB CONC 32.2 g/dL (32.0-36.0); MEAN CORPUSCULAR VOLUME 93.2 fL (81.0-99.0); MEAN PLATELET VOLUME 11.6 fL (7.9-10.8); MONOCYTES # (AUTO) 0.6 10^3/uL (0.0-1.0); MONOCYTES % (AUTO) 10.2 %; NEUTROPHILS # (AUTO) 3.3 10^3/uL (1.5-6.6); NEUTROPHILS % (AUTO) 60.5 %; PLT - PLATELET COUNT 141 10^3/uL (130-450); RED BLOOD COUNT 3.96 10^6/uL (4.20-5.40); RED CELL DISTRIBUTION WIDTH 13.4 % (12.0-15.0); WHITE BLOOD COUNT 5.4 x10^3/uL (4.8-10.8)
== END 2019-06-20 13:50 | disposition home or self-care (01) ==
LOC: LAB.S 13:49
PROVIDERS: ATTEND Physician Assistant Medical
DX: R53.83 Other fatigue (principal); R94.6 Abnormal results of thyroid function studies
CPT/HCPCS: 36415; 82607; 84443; 84481; 85025

== ENCOUNTER 2019-07-26 16:49 | Emergency (ER) | payer MEDICARE, OTHER ==
[2019-07-26 17:00] VITALS: BP 99/52
--- NOTE | 2019-07-26 17:14 | ED Physician Documentation ---
PD HPI LOWER EXT INJURY - Stated complaint Stated Complaint: LEFT LEG INJURY - Chief complaint Chief Complaint: Wound - History obtained from History obtained from: Patient - History of Present Illness PD HPI LOW EXT INJURY LOCATION: Left (She tripped and impacted her left alexandra on a step. She did not know her tetanus, but we given it to her last year per the record. She has a skin tear. 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: Other HEENT: Tonsil/Adenoidectomy - Present Medications Home Medications: Ambulatory Orders Medication Instructions Recorded Confirmed Levothyroxine [Synthroid] 88 mcg PO DAILY 08/18/14 04/09/18 Aspirin [Adult Aspirin Regimen] 81 mg PO DAILY 04/09/18 04/09/18 Memantine [Namenda] 5 mg PO DAILY 04/09/18 04/09/18 Meclizine HCl [Motion Sickness 25 mg PO Q6HR PRN #20 tablet 05/09/19 Relief] - Allergies Allergies/Adverse Reactions: Allergies Allergy/AdvReac Type Severity Reaction Status Date / Time Penicillins Allergy Rash Verified 07/26/19 16:57 Sulfa (Sulfonamide Allergy Hives Verified 07/26/19 16:57 Antibiotics) - Social History Does the pt smoke?: No Smoking Status: Never smoker Does the pt drink ETOH?: No Does the pt have substance abuse?: No - Immunizations Immunizations are current?: No - POLST Patient has POLST: No PD ED PE NORMAL - Vitals Vital signs reviewed: Yes - General General: Alert and oriented X 3, No acute distress - Extremities Extremities: Other (She has a 6 cm inverted V shaped skin laceration into fat over the anterior alexandra without any tenderness or abnormal gait.) - Neuro Neuro: Alert and oriented X 3, Normal speech Results - Vitals Vitals: Vital Signs - 24 hr 07/26/19 16:54 Temperature 36.8 C Heart Rate 70 Respiratory 17 Rate Blood Pressure 99/52 L O2 Saturation 98 Oxygen O2 Source Room air Procedures - Laceration (location) Left alexandra Length in cm: 6 Wound type: Flap, Into subcut fat Neurovascular status: Sensory intact, Motor intact, Vascular intact Wound Preparation: Irrigated copiously NS Skin layer closure: Steri strips Other: Tetanus UTD Complexity: Simple Departure - Departure Disposition: 01 Home, Self Care Clinical Impression: Laceration of left leg Qualifiers: Encounter type: initial encounter Qualified Code(s): S81.812A - Laceration without foreign body, left lower leg, initial encounter Condition: Good Record reviewed to determine appropriate education?: Yes Instructions: ED Laceration Ext Sutr Stap Tape Comments: As discussed, the wound is very shallow and your skin is too thin to suture. K eep it clean dry and covered. You can wash briefly with soap and water but do not remove the Steri-Strips.Follow-up with your doctor in about 4 days for wound check. Return for fever, redness, increased pain or other new concerns.
== END 2019-07-26 17:25 | disposition home or self-care (01) ==
LOC: ED 16:49
DX: S81.812A Laceration without foreign body, left lower leg, initial encounter (principal); W22.09XA Striking against other stationary object, initial encounter; Y93.01 Activity, walking, marching and hiking; Z79.82 Long term (current) use of aspirin
CPT/HCPCS: 12002; 99281

== ENCOUNTER 2020-02-10 14:24 | Outpatient (CLI) | payer MEDICARE, OTHER ==
[2020-02-10 14:37] LABS: BASOPHILS # (AUTO) 0.1 10^3/uL (0.0-0.1); BASOPHILS % (AUTO) 0.9 %; EOSINOPHILS # (AUTO) 0.2 10^3/uL (0.0-0.7); EOSINOPHILS % (AUTO) 2.7 %; LYMPHOCYTES # (AUTO) 2.5 10^3/uL (1.5-3.5); LYMPHOCYTES % (AUTO) 36.3 %; MEAN CORPUSCULAR HEMOGLOBIN 30.6 pg (27.0-31.0); MEAN CORPUSCULAR HGB CONC 33.9 g/dL (32.0-36.0); MEAN CORPUSCULAR VOLUME 90.4 fL (81.0-99.0); MEAN PLATELET VOLUME 11.2 fL (7.9-10.8); MONOCYTES # (AUTO) 0.6 10^3/uL (0.0-1.0); MONOCYTES % (AUTO) 8.7 %; NEUTROPHILS # (AUTO) 3.5 10^3/uL (1.5-6.6); NEUTROPHILS % (AUTO) 51.1 %; PLT - PLATELET COUNT 178 10^3/uL (130-450); RED CELL DISTRIBUTION WIDTH 13.7 % (12.0-15.0); WHITE BLOOD COUNT 6.9 x10^3/uL (4.8-10.8)
[2020-02-10 14:51] LABS: ALBUMIN 4.2 g/dL (3.2-5.5); ALBUMIN/GLOBULIN RATIO 1.3 (1.0-2.2); CALCIUM 8.8 mg/dL (8.5-10.3); CREATININE 0.7 mg/dL (0.4-1.0); TOTAL PROTEIN 7.5 g/dL (6.7-8.2)
== END 2020-02-10 14:25 | disposition home or self-care (01) ==
LOC: LAB 14:24
PROVIDERS: ATTEND Physician Assistant Medical
DX: R10.13 Epigastric pain (principal); R11.2 Nausea with vomiting, unspecified
CPT/HCPCS: 36415; 80053; 82150; 83690; 85025

== ENCOUNTER 2020-05-26 14:09 | Outpatient (CLI) | payer MEDICARE, OTHER ==
--- NOTE | 2020-06-08 14:56 | Mammography Report ---
Reason: ROUTINE MAMMO Procedure Date: 05/26/2020 Accession Number: [id number] / [id number] Procedure: MGS - Screening Mammo Dig Bilat CPT Code: Final Report FULL RESULT: BILATERAL DIGITAL SCREENING MAMMOGRAM WITH EXAGGERATED CC: 05/26/2020 CLINICAL: Routine screening. Comparison is made to exams dated: 05/25/2015 mammogram and 02/03/2014 mammogram - [facility]. There are scattered fibroglandular elements in both breasts. There are stable benign vascular calcifications in the left breast. There also are benign post operative findings in the left breast. No significant masses, calcifications, or other findings are seen in either breast. There has been no significant interval change. IMPRESSION: There is no mammographic evidence of malignancy. A 1 year screening mammogram is recommended. This exam was interpreted at Station ID: [id number]. NOTE: For mammograms, a report in lay terms will be sent to the patient. Approximately 15% of breast malignancies will not be visualized mammographically. In the management of a palpable breast mass, a negative mammogram must not discourage biopsy of a clinically suspicious lesion. Electronically Signed By: Jenny lennon/[email or web address]:06/04/2020 17:21:12 ACR BI-RADS Category 2: Benign Finding(s) 3342F B -Scattered fibroglandular 2 Mammogram [id number] 1 year screening B
== END 2020-05-26 14:10 | disposition home or self-care (01) ==
LOC: DI.S 14:09
DX: Z12.31 Encounter for screening mammogram for malignant neoplasm of breast (principal)
CPT/HCPCS: 77067

== ENCOUNTER 2021-07-05 10:11 | Emergency (ER) | payer MEDICARE, OTHER ==
--- NOTE | 2021-07-05 12:32 | XRAY Report ---
PROCEDURE: Ribs w/PA Chest LT INDICATIONS: fall, L rib pain TECHNIQUE: 2 views of the left ribs were acquired, along with a single view chest. COMPARISON: None FINDINGS: Surgical changes and devices: Left axillary surgical clips. Bones and chest wall: No fractures or dislocations. No suspicious bony lesions. Overlying soft tis sues appear unremarkable. Lungs and pleura: No pleural effusions or pneumothorax. Lungs appear clear. Mediastinum: Mediastinal contours appear normal. Heart is enlarged. IMPRESSION: No displaced rib fracture. No acute cardiopulmonary disease process. Reviewed by: Kyung Ellis MD, PhD on 07/05/2021 12:31 PM PDT Approved by: Kyung Ellis MD, PhD on 07/05/2021 12:31 PM PDT Station ID: [id number]
--- NOTE | 2021-07-05 13:04 | ED Physician Documentation ---
History of Present Illness - Stated complaint Stated Complaint: FALL - Chief complaint Chief Complaint: General - History obtained from History obtained from: Patient, Family - History of Present Illness Timing: How many days ago (2) Pain level max: 6 Pain level now: 3 - Additonal information Additional information: Patient is an 80-year-old female who suffered a ground-level fall 2 nights ago. Witnessed by her . Landed on the left ribs. Complains of increasing left rib pain today. Has not taken anything for the pain. Worse with movement and palpation, better with rest. No difficulty breathing. No vomiting. No bruising. No head, neck, back pain. Is not on blood thinners. 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 : Other HEENT: None Psych: Depression, Anxiety Musculoskeletal: Osteoporosis Derm: None - Past Surgical History 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 HEENT: Tonsil/Adenoidectomy - Present Medications Home Medications: Ambulatory Orders Medication Instructions Recorded Confirmed Levothyroxine [Synthroid] 88 mcg PO DAILY 08/18/14 04/09/18 Aspirin [Adult Aspirin Regimen] 81 mg PO DAILY 04/09/18 04/09/18 Memantine [Namenda] 5 mg PO DAILY 04/09/18 04/09/18 Meclizine HCl [Motion Sickness 25 mg PO Q6HR PRN #20 tablet 05/09/19 Relief] Famotidine 20 mg PO DAILY #30 tablet 06/24/20 Ondansetron Odt [Zofran] 4 mg TL Q6H PRN #20 tablet 06/24/20 Potassium Citrate [Potassium 10 meq PO DAILY #20 tablet.er 06/24/20 Citrate ER] Meloxicam [Mobic] 7.5 mg PO BID PRN #20 tablet 07/05/21 - Allergies Allergies/Adverse Reactions: Allergies Allergy/AdvReac Type Severity Reaction Status Date / Time Penicillins Allergy Rash Verified 06/24/20 08:26 Sulfa (Sulfonamide Allergy Hives Verified 06/24/20 08:26 Antibiotics) - Social History Does the pt smoke?: No Smoking Status: Never smoker Does the pt drink ETOH?: No Does the pt have substance abuse?: No - Immunizations Immunizations are current?: No - POLST Patient has POLST: No PD ED PE NORMAL - Vitals Vital signs reviewed: Yes - General General: Alert and oriented X 3, No acute distress, Well developed/nourished - HEENT HEENT: Atraumatic, PERRL, EOMI, Ears normal, Moist mucous membranes - Neck Neck: Supple, no meningeal sign - Cardiac Cardiac: RRR, Strong equal pulses - Respiratory Respiratory: No respiratory distress, Clear bilaterally - Abdomen Abdomen: Soft, Non tender, Non distended - Derm Derm: Warm and dry - Extremities Extremities: No deformity - Neuro Neuro: Alert and oriented X 3 - Psych Psych: Normal mood, Normal affect Results - Vitals Vitals: Vital Signs - 24 hr 07/05/21 10:33 Temperature 36.6 C Heart Rate 85 Respiratory 15 Rate Blood Pressure 139/74 H O2 Saturation 99 Oxygen O2 Source Room air - Rads (name of study) L rib w/ cxr Radiology: Final report received, EMP read contemporaneously, See rad report (No acute abnormality. No fractures.) PD MEDICAL DECISION MAKING - ED course Complexity details: reviewed results, re-evaluated patient, considered differential, d/w patient, d/w family ED course: 80-year-old female status post a ground-level fall 2 nights ago, left rib pain. No acute findings on x-ray. Pain well controlled. No crepitus. No bruising. No evidence of hemo or pneumothorax. No head, neck, back pain. Patient and family counseled regarding signs and symptoms for which I believe and urgent re- evaluation would be necessary. Patient with good understanding of and agreement to plan and is comfortable going home at this time This document was made in part using voice recognition software. While efforts are made to proofread this document, sound alike and grammatical errors may occur. Departure - Departure Disposition: 01 Home, Self Care Clinical Impression: Contusion of rib on left side Qualifiers: Encounter type: initial encounter Qualified Code(s): S20.212A - Contusion of left front wall of thorax, initial encounter Condition: Good Instructions: ED Contusion Vs Minor Fx Rib Follow-Up: Sidra Hurley ARNP [Primary Care Provider] - Within 1 week Prescriptions: Meloxicam [Mobic] 7.5 mg PO BID PRN #20 tablet PRN Reason: Pain Comments: You can use the meloxicam as needed for pain. Her x-ray does not show any fractures today. This may take several weeks to fully heal. Return if she worsens.
[2021-07-05] MEDS: MELOXICAM 7.5 MG TABLET PO STA (13:09)
[2021-07-05 13:12] VITALS: BP 145/72
== END 2021-07-05 13:17 | disposition home or self-care (01) ==
LOC: ED 10:11
DX: S20.212A Contusion of left front wall of thorax, initial encounter (principal); W18.30XA Fall on same level, unspecified, initial encounter
CPT/HCPCS: 71101; 99283; 99284; A9270

== ENCOUNTER 2021-08-01 07:58 | Emergency (ER) | payer MEDICARE, OTHER ==
[2021-08-01 08:09] VITALS: BP 145/65
--- NOTE | 2021-08-01 08:15 | ED Physician Documentation ---
PD HPI UPPER EXT INJURY - Stated complaint Stated Complaint: HAND LAC - Chief complaint Chief Complaint: Laceration - History obtained from History obtained from: Patient - History of Present Illness Location: Right, Hand (dorsum) Where injury occurred: Home (she states she was picking up/moving her dog and it nipped at her hand, causing tear of skin.) Timing - onset: Today Timing - details: Abrupt onset, Still present Worsened by: No: Moving, Palpating Associated symptoms: No: Weakness, Numbness Similar symptoms before: Has not had sx before Review of Systems Constitutional: denies: Fever, Chills Nose: denies: Rhinorrhea / runny nose, Congestion Throat: denies: Sore throat Respiratory: denies: Cough GI: denies: Nausea, Vomiting Neurologic: denies: Focal weakness, Numbness PD PAST MEDICAL HISTORY - Past Medical History Cardiovascular: None, High cholesterol Respiratory: Sleep apnea, CPAP use Neuro: None Endocrine/Autoimmune: HyPOthyroidism GI: None LENS EDGER: None : Other HEENT: None Psych: Depression, Anxiety Musculoskeletal: Osteoporosis Derm: None - Past Surgical History Past Surgical History: Yes /LENS EDGER: Other HEENT: Tonsil/Adenoidectomy - Present Medications Home Medications: Ambulatory Orders Medication Instructions Recorded Confirmed Levothyroxine [Synthroid] 88 mcg PO DAILY 08/18/14 08/01/21 Memantine [Namenda] 5 mg PO DAILY 04/09/18 08/01/21 Meloxicam [Mobic] 7.5 mg PO BID PRN #20 tablet 07/05/21 08/01/21 Doxycycline Hyclate 100 mg PO BID #10 08/01/21 - Allergies Allergies/Adverse Reactions: Allergies Allergy/AdvReac Type Severity Reaction Status Date / Time Penicillins Allergy Rash Verified 08/01/21 08:03 Sulfa (Sulfonamide Allergy Hives Verified 08/01/21 08:03 Antibiotics) - Social History Does the pt smoke?: No Smoking Status: Never smoker Does the pt drink ETOH?: No Does the pt have substance abuse?: No - Immunizations Immunizations are current?: No - POLST Patient has POLST: No PD ED PE NORMAL - Vitals Vital signs reviewed: Yes - General General: Alert and oriented X 3, No acute distress, Well developed/nourished - Derm Derm: Normal color, Warm and dry - Extremities Extremities: Other (dorsum right hand with stellate laceration, partial thick ness on proximal area and through to fatty tissue more distal. No involvement of tendons. No FB. Minimal bleeding at this time. ) - Neuro Neuro: No motor deficit, No sensory deficit Results - Vitals Vitals: Vital Signs - 24 hr 08/01/21 08:05 Temperature 36.5 C Heart Rate 62 Respiratory 18 Rate Blood Pressure 145/65 H O2 Saturation 95 Oxygen O2 Source Room air Procedures - Laceration (location) dorsum right hand Length in cm: 5 Wound type: Stellate, Flap, Into subcut fat, Clean Neurovascular status: Sensory intact, Motor intact Tendon involvement: Tendon intact Anesthesia: Lidocaine 1% with epi Wound preparation: Irrigated copiously NS, Wound explored, To the base Skin layer closure: Nylon, Interrupted, Running, Size #-0 - enter number (4) PD MEDICAL DECISION MAKING - ED course Complexity details: considered differential (partial to full thickness stellate lac of thin skin area back of hand. Part of it is unlikely to heal in due to thinness of the tear, but other parts should heal, so just closed and tacked the flaps best I could. ), d/w patient Departure - Departure Disposition: 01 Home, Self Care Clinical Impression: Dog bite, hand Qualifiers: Encounter type: initial encounter Laterality: right Qualified Code(s): S61.451A - Open bite of right hand, initial encounter Hand laceration Qualifiers: Encounter type: initial encounter Foreign body presence: without foreign body Laterality: right Qualified Code(s): S61.411A - Laceration without foreign body of right hand, initial encounter Condition: Stable Record reviewed to determine appropriate education?: Yes Instructions: ED Laceration Hand Follow-Up: Sidra Hurley ARNP [Primary Care Provider] - Prescriptions: Doxycycline Hyclate 100 mg PO BID #10 Comments: The torn areas of scanner held together by both stitches and Steri-Strips. Keep the area clean and dry. Light use of the hand is fine. Keep the area protected with some dressing daily. The Steri-Strips should fall off on their own after several days to week or so. The sutures will need removing and I would keep them in place for about 8 to 10 days before removing. The torn skin is good to be slow healing and will likely take a few weeks but you should be able to be without the support of the stitches after that 8 to 10- day timeframe. Return if signs of infection. We are placing you on doxycycline twice daily to reduce the chance of infection from the bite wound. Tylenol or ibuprofen if needed for pains. Discharge Date/Time: 08/01/21 09:41
[2021-08-01] MEDS ORDERED: LIDOCAINE 1%-EPI 1:100000 20 ML MDV SUBQ STA (08:21)
[2021-08-01] MEDS ORDERED: DOXYCYCLINE 100 MG TABLET PO STA (08:21)
[2021-08-01] MEDS ORDERED: ACETAMINOPHEN 325 MG TABLET PO STA (08:21)
== END 2021-08-01 09:41 | disposition home or self-care (01) ==
LOC: ED 07:58
DX: S61.451A Open bite of right hand, initial encounter (principal); S61.411A Laceration without foreign body of right hand, initial encounter; W54.0XXA Bitten by dog, initial encounter; Y93.K9 Activity, other involving animal care; Y92.009 Unspecified place in unspecified non-institutional (private) residence as the place of occurrence of the external cause
CPT/HCPCS: 12002; 99283; A9270

== ENCOUNTER 2021-09-01 06:42 | Emergency (ER) | payer MEDICARE, OTHER ==
[2021-09-01] MEDS ORDERED: ACETAMINOPHEN 325 MG TABLET PO STA (07:05)
--- NOTE | 2021-09-01 07:29 | ED Physician Documentation ---
PD HPI Fall - Stated complaint Stated Complaint: GLF - Chief complaint Chief Complaint: Trauma Ch/Bk - History obtained from History obtained from: Patient, Family - History of Present Illness Mechanism of injury: Tripped Fall distance: Standing position Where injury occurred: A house / apartment Timing - onset: How many days ago (2) Injury(ies) location: Chest, Left Uppper Extremity Quality of pain: Pain Associated symptoms: No: LOC, AMS, Amnesia, Seizures, Ear drainage, Nasal drainage, Neck pain, Weakness, Paresthesias, Dyspnea, Nausea / vomiting, Hematemesis, Abdominal distension Symptoms improve with: Rest Worsens with: Movement, Palpation Contributing factors: No: Anticoagulated Similar symptoms before: Diagnosis (chest wall contusion) Recently seen: Emergency Dept - Additional information Additional information: 81-year-old female has had a fall at a neighbor's house where she tripped over a small rock wall and fell into the bushes. She is landed on her left side and has pain in the left side when she takes deep breath or moves too much. She has had a fall and injured this area about 2 months ago as well. She fell about 2 days ago. 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 : Other HEENT: None Psych: Depression, Anxiety Musculoskeletal: Osteoporosis Derm: None - Past Surgical History Past Surgical History: Yes /METEOROLOGICAL TECHNICIAN: Other HEENT: Tonsil/Adenoidectomy - Present Medications Home Medications: Ambulatory Orders Medication Instructions Recorded Confirmed Levothyroxine [Synthroid] 88 mcg PO DAILY 08/18/14 09/01/21 Memantine [Namenda] 5 mg PO DAILY 04/09/18 09/01/21 Meloxicam [Mobic] 7.5 mg PO BID PRN #20 tablet 07/05/21 09/01/21 Meloxicam [Mobic] 7.5 mg PO BID 10 Days #20 tablet 09/01/21 - Allergies Allergies/Adverse Reactions: Allergies Allergy/AdvReac Type Severity Reaction Status Date / Time Penicillins Allergy Rash Verified 09/01/21 06:56 Sulfa (Sulfonamide Allergy Hives Verified 09/01/21 06:56 Antibiotics) - Social History Does the pt smoke?: No Smoking Status: Never smoker Does the pt drink ETOH?: No Does the pt have substance abuse?: No - Immunizations Immunizations are current?: No - POLST Patient has POLST: No PD ED PE NORMAL - Vitals Vital signs reviewed: Yes (normal) - General General: Alert and oriented X 3, No acute distress, Well developed/nourished - HEENT HEENT: Atraumatic, PERRL, EOMI - Neck Neck: Supple, no meningeal sign, No bony TTP - Cardiac Cardiac: RRR, No murmur - Respiratory Respiratory: No respiratory distress, Other (diminished breath sounds bilat with palpable pain to the left lateral chest wall. ) - Abdomen Abdomen: Soft, Non tender - Back Back: No CVA TTP, No spinal TTP - Derm Derm: Normal color, Warm and dry, No rash - Extremities Extremities: No deformity, No edema - Neuro Neuro: technical support consultant 2-12 intact, No motor deficit, No sensory deficit, Normal speech Eye Opening: Spontaneous Motor: Obeys Commands Verbal: Oriented GCS Score: 15 - Psych Psych: Normal mood, Normal affect Results - Vitals Vitals: Vital Signs - 24 hr 09/01/21 09/01/21 06:45 08:49 Temperature 36.8 C 36.6 C Heart Rate 69 57 L Respiratory 18 16 Rate Blood Pressure 113/60 144/68 H O2 Saturation 99 100 Oxygen O2 Source Room air - Rads (name of study) chest CT Radiology: Prelim report reviewed (Impression: 1. Left sixth and seventh rib fractures. Trace anterior left hemopneumothorax. No lung consolidation.), EMP read indepedently, See rad report PD MEDICAL DECISION MAKING - ED course Complexity details: reviewed results, re-evaluated patient, considered differential, d/w patient, d/w family ED course: 81-year-old female with mild dementia has had a fall and has broken 2 ribs. She is saturating well, she is comfortable without specific pain control given here, other than Tylenol. She would like to go home and I have discussed the case with the print controller surgeon Dr. Ortega and he recommends conservative care with return for pain control if needed. Departure - Departure Disposition: 01 Home, Self Care Clinical Impression: Rib fractures Qualifiers: Encounter type: initial encounter Fracture type: closed Laterality: left Qualified Code(s): S22.42XA - Multiple fractures of ribs, left side, initial encounter for closed fracture Instructions: ED Fx Rib Follow-Up: Sidra Hurley ARNP [Primary Care Provider] - Prescriptions: Meloxicam [Mobic] 7.5 mg PO BID 10 Days #20 tablet Comments: Today on your x-ray there are fractures of 2 ribs. This can get to be an extremely painful condition which can limit your ability to take a deep breath. It is important to take something for the pain and do deep breathing several times per day. If you are worsening over time and unable to control your pain return to the emergency department for further pain control. Discharge Date/Time: 09/01/21 08:50
--- NOTE | 2021-09-01 07:42 | CT Report ---
PROCEDURE: CHEST WO INDICATIONS: fall with left anterolateral ribs/chest pain TECHNIQUE: Noncontrast 1mm axial images were acquired from the pulmonary apices to the posterior costophrenic an gles. Axial 5 mm soft tissue kernel reconstructions were performed as well as 8 mm axial MIP and cor onal and sagittal 5 mm reformations. For radiation dose reduction, the following was used: automate d exposure control, adjustment of mA and/or kV according to patient size. COMPARISON: None FINDINGS: Image quality: Excellent. Lungs and pleura: No acute air space opacities. Trace anterior left hydropneumothorax.. Central and peripheral airways are patent and normal in caliber. Mediastinum: Heart size is normal. No pericardial effusion. No mediastinal adenopathy by size crit eria. Thoracic aorta and central pulmonary arteries are normal in size. Esophagus is normal in fei nazanin. No hiatal hernia. Bones and chest wall: Displaced anterolateral left sixth and seventh rib fractures. No vertebral body compression fractures. No axillary or supraclavicular adenopathy by size criteria. The thyroid is normal in size and there are no incidental findings. Abdomen: Visualized upper abdominal solid organs and bowel loops appear normal in the absence of con trast. IMPRESSION: 1. Left sixth and seventh rib fractures. 2. Trace anterior left hemopneumothorax. 3. No lung consolidation. Reviewed by: Kyung Ellis MD, PhD on 09/01/2021 7:41 AM PDT Approved by: Kyung Ellis MD, PhD on 09/01/2021 7:41 AM PDT Station ID: [id number]
[2021-09-01 08:50] VITALS: BP 144/68
== END 2021-09-01 08:50 | disposition home or self-care (01) ==
LOC: ED 06:42
DX: S22.42XA Multiple fractures of ribs, left side, initial encounter for closed fracture (principal); M79.602 Pain in left arm; W01.0XXA Fall on same level from slipping, tripping and stumbling without subsequent striking against object, initial encounter; Y93.01 Activity, walking, marching and hiking; Y92.007 Garden or yard of unspecified non-institutional (private) residence as the place of occurrence of the external cause; F03.90 Unspecified dementia, unspecified severity, without behavioral disturbance, psychotic disturbance, mood disturbance, and anxiety
CPT/HCPCS: 71250; 99284; A9270

== ENCOUNTER 2021-12-26 08:00 | Outpatient (CLI) | payer MEDICARE, OTHER ==
[2021-12-28 10:06] LABS: CLARITY,URINE CLEAR (CLEAR); LEUKOCYTE ESTERASE, URINE LARGE (NEGATIVE); NITRITE,URINE NEGATIVE (NEGATIVE); PROTEIN,URINE NEGATIVE (NEGATIVE); UROBILINOGEN,URINE 0.2 (NORMAL) E.U./dL (NORMAL)
[2021-12-28 10:07] LABS: BACTERIA,URINE Many /HPF (None Seen); BILIRUBIN,URINE NEGATIVE (NEGATIVE); GLUCOSE, URINE (UA) NEGATIVE (NEGATIVE); KETONES,URINE (UA) NEGATIVE (NEGATIVE); OCCULT BLOOD,URINE TRACE-LYSED (NEGATIVE); RBC,URINE 0-5 /HPF (0-5); SQUAMOUS EPITHELIAL CELL,UR RARE Squamous (<= Few); WBC,URINE >25 /HPF (0-5)
== END 2021-12-26 23:59 ==
LOC: LAB.F 08:00
PROVIDERS: ATTEND Registered Nurse
DX: R30.0 Dysuria (principal)
CPT/HCPCS: 81001; 87077; 87086; 87181

== ENCOUNTER 2022-02-14 08:00 | Outpatient (CLI) | payer MEDICARE, OTHER ==
[2022-02-14 20:21] LABS: BILIRUBIN,URINE NEGATIVE (NEGATIVE); GLUCOSE, URINE (UA) NEGATIVE (NEGATIVE); KETONES,URINE (UA) NEGATIVE (NEGATIVE); LEUKOCYTE ESTERASE, URINE LARGE (NEGATIVE); NITRITE,URINE NEGATIVE (NEGATIVE); OCCULT BLOOD,URINE SMALL (NEGATIVE); PH,URINE 6.5 PH (5.0-7.5); PROTEIN,URINE NEGATIVE (NEGATIVE); UROBILINOGEN,URINE 0.2 (NORMAL) E.U./dL (NORMAL)
[2022-02-14 20:26] LABS: CLARITY,URINE HAZY (CLEAR)
[2022-02-14 21:20] LABS: BACTERIA,URINE Moderate /HPF (None Seen); SQUAMOUS EPITHELIAL CELL,UR FEW Squamous (<= Few); WBC,URINE >25 /HPF (0-5)
== END 2022-02-14 23:59 ==
LOC: LAB.S 08:00
PROVIDERS: ATTEND Physician Assistant Medical
DX: R30.0 Dysuria (principal)
CPT/HCPCS: 81001; 87077; 87086; 87181

== ENCOUNTER 2022-09-12 08:00 | Outpatient (CLI) | payer MEDICARE, OTHER | END 2022-09-12 23:59 | disposition home or self-care (01) | LOC: LAB.S 08:00 | PROVIDERS: ATTEND Physician Assistant | DX: R30.0 Dysuria (principal) | CPT/HCPCS: 87086 ==

== ENCOUNTER 2022-10-06 11:36 | Emergency (ER) | payer MEDICARE, OTHER ==
--- NOTE | 2022-10-06 13:38 | ED Physician Documentation ---
PD HPI FEMALE - Stated complaint Stated Complaint: FEMALE - Chief complaint Chief Complaint: Abd Pain - History obtained from History obtained from: Patient, Family - Additional information Additional information: This is a relatively healthy 82-year-old woman who presents with her for the evaluation of vaginal pain and urinary complaints. For last 3 weeks or so she feels like she has to urinate but nothing comes out and its associated with intermittent vaginal pain albeit not necessarily when trying to urinate. The urine itself is unremarkable visually and smell lozano. Its not associate with back pain or trouble with bowel movement. No discharge. She was seen in the clinic and treated for presumptive yeast infection with what sounds like Diflucan without relief. No history of abdominal surgeries are C-sections. 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 : Other HEENT: None Psych: Depression, Anxiety Musculoskeletal: Osteoporosis Derm: None - Past Surgical History Past Surgical History: Yes /STORAGE MANAGER: Other HEENT: Tonsil/Adenoidectomy - Present Medications Home Medications: Ambulatory Orders Medication Instructions Recorded Confirmed Levothyroxine [Synthroid] 88 mcg PO DAILY 08/18/14 09/01/21 Memantine [Namenda] 5 mg PO DAILY 04/09/18 09/01/21 Meloxicam [Mobic] 7.5 mg PO BID PRN #20 tablet 07/05/21 09/01/21 Meloxicam [Mobic] 7.5 mg PO BID 10 Days #20 tablet 09/01/21 Estrogens, Conjugated Cream 1 gm VG QPM #30 gm 10/06/22 [Premarin Cream] - Allergies Allergies/Adverse Reactions: Allergies Allergy/AdvReac Type Severity Reaction Status Date / Time Penicillins Allergy Rash Verified 10/06/22 12:07 Sulfa (Sulfonamide Allergy Hives Verified 10/06/22 12:07 Antibiotics) - Social History Does the pt smoke?: No Smoking Status: Never smoker Does the pt drink ETOH?: No Does the pt have substance abuse?: No - Immunizations Immunizations are current?: No - POLST Patient has POLST: No PD ED PE NORMAL - Vitals Vital signs reviewed: Yes - General General: Other (Seems to have some mild memory difficulties and leans on her for some parts of the history.) - Abdomen Abdomen: Normal bowel sounds, Soft, Non tender - Female Female : Refrigerator Mover present (Gilda RN), Other (Appearance of likely atrophic vaginitis of the introitus with otherwise unremarkable and nontender vaginal mucosa, negative bimanual examination. She has evidence of very mild bladder prolapse.) - Psych Psych: Normal mood, Normal affect Results - Vitals Vitals: Vital Signs - 24 hr 10/06/22 12:01 Temperature 36.6 C Heart Rate 57 L Respiratory 14 Rate Blood Pressure 101/69 O2 Saturation 100 Oxygen O2 Source Room air PD MEDICAL DECISION MAKING - ED course ED course: 82-year-old woman with several weeks of vaginal pain, examination most consistent with atrophic vaginitis and I did discuss the case by phone with Dr. Segovia who agrees with plan and follow-up. Departure - Departure Disposition: Home, Self Care Clinical Impression: Atrophic vaginitis Condition: Good Record reviewed to determine appropriate education?: Yes Instructions: ED Vaginitis Atrophic Follow-Up: [facility] [Provider Group] Prescriptions: Estrogens, Conjugated Cream [Premarin Cream] 1 gm VG QPM #30 gm Comments: The exam today is most consistent with atrophic vaginitis. I did discuss the case by phone with our on-call stock cutter. We are going to trial some estrogen cream, recognize this will not work immediately as it takes some time to work. You should follow-up in the women's clinic in a week or 2 to reevaluate this, the numbers on this form and you can call Sunday for an appointment. Return for new or worsening symptoms.
[2022-10-06 14:34] VITALS: BP 124/74
[2022-10-06 19:19] LABS: BACTERIAL VAGINOSIS DNA NEGATIVE (NEGATIVE); CANDIDA GLABRATA DNA NEGATIVE (NEGATIVE); CANDIDA GROUP DNA NEGATIVE (NEGATIVE); CANDIDA KRUSEI DNA NEGATIVE (NEGATIVE); TRICHOMONAS VAGINALIS DNA NEGATIVE (NEGATIVE)
== END 2022-10-06 14:36 | disposition home or self-care (01) ==
LOC: ED 11:36
DX: N95.2 Postmenopausal atrophic vaginitis (principal)
CPT/HCPCS: 81514; 87210; 99282; 99283

== ENCOUNTER 2023-01-05 03:26 | Emergency (ER) | payer MEDICARE, OTHER ==
[2023-01-05 03:39] VITALS: BP 155/73
--- NOTE | 2023-01-05 03:49 | ED Physician Documentation ---
PD HPI HEENT - Stated complaint Stated Complaint: R EAR PAIN - Chief complaint Chief Complaint: Heent - History obtained from History obtained from: Patient, Family ( of patient) - Additional information Additional information: patient c/o right ear pain, onset earlier tonight. Patient has dementia, limiting reliability regarding HPI; she initially is not certain whether it is her right or left ear that has been hurting, but patient's (in ED at bedside) says patient was c/o right ear pain tonight which is new for her. No known injury. 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 : Other HEENT: None Psych: Depression, Anxiety Musculoskeletal: Osteoporosis Derm: None - Past Surgical History Past Surgical History: Yes /DIRECTOR VETERINARY: Other HEENT: Tonsil/Adenoidectomy - Present Medications Home Medications: Ambulatory Orders Medication Instructions Recorded Confirmed Amox/Clav 875/125 [Augmentin 1 tablet PO Q12H 7 Days #14 tablet 01/05/23 875/125 Tab] levETIRAcetam [Keppra] 500 mg PO BID 01/05/23 01/05/23 - Allergies Allergies/Adverse Reactions: Allergies Allergy/AdvReac Type Severity Reaction Status Date / Time No Known Drug Allergies Allergy Verified 01/05/23 03:35 - Social History Does the pt smoke?: No Smoking Status: Never smoker Does the pt drink ETOH?: No Does the pt have substance abuse?: No - Immunizations Immunizations are current?: No - POLST Patient has POLST: No PD ED PE NORMAL - Vitals Vital signs reviewed: Yes - General General: No acute distress, Well developed/nourished, Other (awake and alert, NAD) PD ED PE EXPANDED - HEENT HEENT: R TM red (mild). No: R TM dull, R TM bulging, R TM retracted Results - Vitals Vitals: Oxygen O2 Source Room air PD Medical Decision Making - ED course Complexity details: considered differential, d/w patient, d/w family ED course: c/o atraumatic right ear pain since earlier tonight. Mild right TM erythema (normal left TM). Given augmentin in ED for OM, rx for same electronically submitted to patient's pharmacy of choice Departure - Departure Disposition: 01 Home, Self Care Clinical Impression: Otitis media Condition: Good Instructions: ED Otitis Media Acute Adult Prescriptions: Amox/Clav 875/125 [Augmentin 875/125 Tab] 1 tablet PO Q12H 7 Days #14 tablet Comments: There is mild inflammation on the exam of the right ear, specifically of the right eardrum which would indicate a middle ear infection. Often this is a viral infection, but there is no accurate nor reliable test to determine if this is from a virus or bacteria and thus you are being prescribed an antibiotic to cover the most common bacterial causes of middle ear infection. A dose of Augmentin (antibiotic) was given in the emergency department, and a prescription for a 1 week course has been electronically submitted to the [facility] [place]. You can take Tylenol or ibuprofen for the pain; follow label directions. Discharge Date/Time: 01/05/23 04:21
[2023-01-05] MEDS ORDERED: AMOX/CLAV 875 MG/125 MG TABLET PO STA (04:07)
== END 2023-01-05 04:21 | disposition home or self-care (01) ==
LOC: ED 03:26
DX: H66.91 Otitis media, unspecified, right ear (principal); F03.90 Unspecified dementia, unspecified severity, without behavioral disturbance, psychotic disturbance, mood disturbance, and anxiety; E03.9 Hypothyroidism, unspecified
CPT/HCPCS: 99282; 99283; A9270

== ENCOUNTER 2023-02-08 08:00 | Outpatient (CLI) | payer MEDICARE, OTHER | END 2023-02-08 23:59 | disposition home or self-care (01) | LOC: LAB.S 08:00 | PROVIDERS: ATTEND Emergency Medicine | DX: R30.0 Dysuria (principal) | CPT/HCPCS: 87086; 87181 ==

== ENCOUNTER 2023-04-15 15:13 | Emergency (ER) | payer MEDICARE, OTHER ==
--- NOTE | 2023-04-15 16:06 | ED Physician Documentation ---
History of Present Illness - Stated complaint Stated Complaint: FEMALE - Chief complaint Chief Complaint: UTI - History obtained from History obtained from: Patient, Family - History of Present Illness Timing: How many days ago Pain level max: 0 Pain level now: 0 - Additonal information Additional information: 82-year-old female with a history of dementia presents to the emergency department with dysuria and urinary frequency increasing over the past several days. No fevers. No vomiting. No back pain. Feels similar to prior UTIs. No abdominal pain. 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 : Other HEENT: None Psych: Depression, Anxiety Musculoskeletal: Osteoporosis Derm: None - Past Surgical History Past Surgical History: Yes /ELECTRONIC INSTALLER: Other HEENT: Tonsil/Adenoidectomy - Present Medications Home Medications: Ambulatory Orders Medication Instructions Recorded Confirmed Amox/Clav 875/125 [Augmentin 1 tablet PO Q12H 7 Days #14 tablet 01/05/23 875/125 Tab] levETIRAcetam [Keppra] 500 mg PO BID 01/05/23 01/05/23 cephALEXin [Keflex] 500 mg PO Q6H #20 cap 04/15/23 - Allergies Allergies/Adverse Reactions: Allergies Allergy/AdvReac Type Severity Reaction Status Date / Time No Known Drug Allergies Allergy Verified 04/15/23 15:38 - Social History Does the pt smoke?: No Smoking Status: Never smoker Does the pt drink ETOH?: No Does the pt have substance abuse?: No - Immunizations Immunizations are current?: No - POLST Patient has POLST: No PD ED PE NORMAL - Vitals Vital signs reviewed: Yes - General General: No acute distress, Well developed/nourished, Other (Alert, oriented to person and place.) - HEENT HEENT: PERRL, Moist mucous membranes - Neck Neck: Supple, no meningeal sign - Cardiac Cardiac: RRR, Strong equal pulses - Respiratory Respiratory: No respiratory distress, Clear bilaterally - Abdomen Abdomen: Soft, Non tender, Non distended - Back Back: No CVA TTP, No spinal TTP - Derm Derm: Warm and dry - Extremities Extremities: No edema - Neuro Neuro: Alert and oriented X 3 - Psych Psych: Normal mood, Normal affect Results - Vitals Vitals: Vital Signs - 24 hr 04/15/23 04/15/23 15:26 17:08 Temperature 36.4 C L Heart Rate 72 67 Respiratory 16 16 Rate Blood Pressure 160/71 H 157/67 H O2 Saturation 97 100 Oxygen O2 Source Room air - Labs Labs: Laboratory Tests 04/15/23 16:40 Urine Color YELLOW Urine Clarity CLOUDY Urine pH 6.5 Ur Specific Pringle 1.010 Urine Protein TRACE Urine Glucose (UA) NEGATIVE Urine Ketones NEGATIVE Urine Occult Blood SMALL H Urine Nitrite NEGATIVE Urine Bilirubin NEGATIVE Urine Urobilinogen 0.2 (NORMAL) Ur Leukocyte Esterase LARGE H Urine RBC 6-10 H Urine WBC >25 H Ur Squamous Epith Cells RARE Squamous Urine Bacteria Moderate H Ur Microscopic Review INDICATED Urine Culture Comments INDICATED PD Medical Decision Making - ED course Complexity details: reviewed results, re-evaluated patient, considered differential, d/w patient, d/w family ED course: Patient with what appears to be a UTI. Given Rocephin IM. We will place on cephalexin for home. No evidence of urosepsis. Patient and family counseled regarding signs and symptoms for which I believe and urgent re- evaluation would be necessary. Family with good understanding of and agreement to plan and is comfortable going home at this time This document was made in part using voice recognition software. While efforts are made to proofread this document, sound alike and grammatical errors may occur. Departure - Departure Disposition: 01 Home, Self Care Clinical Impression: Urinary tract infection Qualifiers: Urinary tract infection type: acute cystitis Hematuria presence: without hematuria Qualified Code(s): N30.00 - Acute cystitis without hematuria Condition: Good Instructions: ED UTI Cystitis Female Follow-Up: Sidra Hurley ARNP [Primary Care Provider] - As Needed Prescriptions: cephALEXin [Keflex] 500 mg PO Q6H #20 cap Comments: Your prescriptions were sent to [facility] in [place], you can start the antibiotics tomorrow, the injection she was given tonight will cover her for 24 hours. Please return if she worsens. Take all antibiotics until gone. Discharge Date/Time: 04/15/23 17:09
[2023-04-15] MEDS ORDERED: LIDOCAINE 1% 2 ML VIAL MC ONE (16:36)
[2023-04-15] MEDS ORDERED: cefTRIAXone 1 GM VIAL IM STA (16:36)
[2023-04-15 16:44] LABS: BILIRUBIN,URINE NEGATIVE (NEGATIVE); GLUCOSE, URINE (UA) NEGATIVE (NEGATIVE); KETONES,URINE (UA) NEGATIVE (NEGATIVE); LEUKOCYTE ESTERASE, URINE LARGE (NEGATIVE); NITRITE,URINE NEGATIVE (NEGATIVE); OCCULT BLOOD,URINE SMALL (NEGATIVE); PH,URINE 6.5 PH (5.0-7.5); PROTEIN,URINE TRACE mg/dL (NEGATIVE); UROBILINOGEN,URINE 0.2 (NORMAL) E.U./dL (NORMAL)
[2023-04-15 16:45] LABS: CLARITY,URINE CLOUDY (CLEAR)
[2023-04-15 16:52] LABS: BACTERIA,URINE Moderate /HPF (None Seen); SQUAMOUS EPITHELIAL CELL,UR RARE Squamous (<= Few); WBC,URINE >25 /HPF (0-5)
[2023-04-15 17:11] VITALS: BP 157/67
--- NOTE | 2023-04-17 12:01 | ED Physician Documentation ---
ED Addendum - Addendum Addendum: 04/17/23 11:57 The patient's urine culture results positive growth of Morganella morganii resistant to cefazolin and ampicillin. It is sensitive to Cipro and sulfa. Resistant to nitrofurantoin. She is not allergic to any medicines. Will change from her prescribed Keflex to Cipro 250 twice daily for 7 days. Nursing staff will call the patient. I sent it to her pharmacy.
== END 2023-04-15 17:09 | disposition home or self-care (01) ==
LOC: ED 15:13
DX: N30.00 Acute cystitis without hematuria (principal); B96.89 Other specified bacterial agents as the cause of diseases classified elsewhere
CPT/HCPCS: 81001; 81003; 87077; 87086; 87181; 96372; 99283

== ENCOUNTER 2023-06-19 12:14 | Outpatient (CLI) | payer MEDICARE, OTHER ==
[2023-06-19 14:56] LABS: BASOPHILS # (AUTO) 0.1 10^3/uL (0.0-0.1); BASOPHILS % (AUTO) 0.9 %; EOSINOPHILS # (AUTO) 0.1 10^3/uL (0.0-0.7); EOSINOPHILS % (AUTO) 1.2 %; HCT - HEMATOCRIT 41.1 % (37.0-47.0); HGB - HEMOGLOBIN 13.7 g/dL (12.0-16.0); LYMPHOCYTES # (AUTO) 1.6 10^3/uL (1.5-3.5); LYMPHOCYTES % (AUTO) 23.2 %; MEAN CORPUSCULAR HEMOGLOBIN 30.2 pg (27.0-31.0); MEAN CORPUSCULAR HGB CONC 33.3 g/dL (32.0-36.0); MEAN CORPUSCULAR VOLUME 90.7 fL (81.0-99.0); MEAN PLATELET VOLUME 10.9 fL (7.9-10.8); MONOCYTES # (AUTO) 0.5 10^3/uL (0.0-1.0); MONOCYTES % (AUTO) 7.7 %; NEUTROPHILS # (AUTO) 4.5 10^3/uL (1.5-6.6); NEUTROPHILS % (AUTO) 66.9 %; PLT - PLATELET COUNT 189 10^3/uL (130-450); RED BLOOD COUNT 4.53 10^6/uL (4.20-5.40); WHITE BLOOD COUNT 6.7 x10^3/uL (4.8-10.8)
[2023-06-19 15:31] LABS: ALBUMIN 3.9 g/dL (3.2-5.5); ALBUMIN/GLOBULIN RATIO 1.3 (1.0-2.2); ALKALINE PHOSPHATASE 46 IU/L (42-121); ALT ALANINE AMINOTRANSFERASE 9 IU/L (10-60); AST ASPARTATE AMINOTRANSFERASE 18 IU/L (10-42); BILIRUBIN,TOTAL 0.6 mg/dL (0.2-1.0); BUN - BLOOD UREA NITROGEN 10 mg/dL (6-20); CALCIUM 9.5 mg/dL (8.5-10.3); CARBON DIOXIDE - CO2 31 mmol/L (21-32); CHLORIDE 103 mmol/L (101-111); CHOL/HDL RATIO 4.8 (<4.4); CHOLESTEROL 203 mg/dL; CREATININE 0.8 mg/dL (0.6-1.3); GFR - MDRD 69 (>89); GLUCOSE 89 mg/dL (74-104); HDL CHOLESTEROL 42 mg/dL; LDL CHOLESTEROL,CALCULATED 146 mg/dL; LDL/HDL RATIO 3.5 (<4.4); POTASSIUM 4.1 mmol/L (3.5-4.5); SODIUM 139 mmol/L (135-145); TOTAL PROTEIN 6.9 g/dL (6.4-8.9); TRIGLYCERIDES 75 mg/dL (48-352); VLDL CHOLESTEROL 15 mg/dL
[2023-06-19 15:43] LABS: THYROID STIMULATING HORMONE 0.37 uIU/mL (0.34-5.60)
== END 2023-06-19 12:15 | disposition home or self-care (01) ==
LOC: LAB.S 12:14
PROVIDERS: ATTEND Registered Nurse
DX: E78.5 Hyperlipidemia, unspecified (principal); Z79.899 Other long term (current) drug therapy; E03.9 Hypothyroidism, unspecified
CPT/HCPCS: 36415; 80053; 80061; 83721; 84443; 85025

== ENCOUNTER 2023-11-05 16:46 | Emergency (ER) | payer MEDICARE, OTHER ==
--- NOTE | 2023-11-05 17:19 | ED Physician Documentation ---
PD HPI HEENT - Stated complaint Stated Complaint: FALL/RT EYE PX - Chief complaint Chief Complaint: General - History obtained from History obtained from: Patient - History of Present Illness Timing - onset: How many days ago (6) Timing - duration: Days (6 days ago fell and struck back of head without LOC, vomiting, altered mentation. Has had little tenderness nor headache. Has had some swelling right lower eyelid the past 2 days, increasing. She and person with her are concerned is related to the fall/head strike. No noted URI symptoms nor eye d/c.) Timing - details: Gradual onset, Still present Location: Other (right lower eyelid/periorbital area.) Associated symptoms: No: Fever, Congestion Review of Systems Constitutional: denies: Fever, Chills Eyes: denies: Loss of vision, Decreased vision, Photophobia, Discharge Nose: denies: Rhinorrhea / runny nose, Congestion Throat: denies: Sore throat Respiratory: denies: Cough PD PAST MEDICAL HISTORY - Past Medical History Cardiovascular: None, High cholesterol Respiratory: Sleep apnea, CPAP use Neuro: Alzhiemer's, Seizure disorder Endocrine/Autoimmune: HyPOthyroidism GI: None 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 : Other HEENT: None Psych: Depression, Anxiety Musculoskeletal: Osteoporosis Derm: None - Past Surgical History Past Surgical History: Yes /HUMAN RESOURCES ASSISTANT: Other HEENT: Tonsil/Adenoidectomy - Present Medications Home Medications: Ambulatory Orders Medication Instructions Recorded Confirmed Amox/Clav 875/125 [Augmentin 1 tablet PO Q12H 7 Days #14 tablet 01/05/23 875/125 Tab] levETIRAcetam [Keppra] 500 mg PO BID 01/05/23 01/05/23 cephALEXin [Keflex] 500 mg PO Q6H #20 cap 04/15/23 Ciprofloxacin [Cipro] 250 mg PO BID #14 tablet 04/17/23 Erythromycin Base [Erythromycin 1 applic EACHEYE QID 3 Days #3.5 gm 11/05/23 Ophthalmic Ointment] - Allergies Allergies/Adverse Reactions: Allergies Allergy/AdvReac Type Severity Reaction Status Date / Time No Known Drug Allergies Allergy Verified 04/15/23 15:38 - Social History Does the pt smoke?: No Smoking Status: Never smoker Does the pt drink ETOH?: No Does the pt have substance abuse?: No - Immunizations Immunizations are current?: No - POLST Patient has POLST: No PD ED PE NORMAL - Vitals Vital signs reviewed: Yes - General General: Alert and oriented X 3, No acute distress, Well developed/nourished - HEENT HEENT: PERRL, EOMI, Ears normal, Pharynx benign, Other (right and somewhat the left eyelids with faint crusting. Some redness of lower right eyelid to top of cheek. No scaling. No skin lesions otherwise. ) - Neck Neck: Supple, no meningeal sign, No adenopathy - Cardiac Cardiac: RRR, No murmur - Respiratory Respiratory: Clear bilaterally Results - Vitals Vitals: Oxygen O2 Source Room air - Rads (name of study) head CT Relevant Findings:: Prelim report reviewed (no ICH. chronic changes noted. ), EMP independent interpretation of test PD Medical Decision Making - ED course Complexity details: reviewed results (no acute injuries on CT scan. ), considered differential (right eyelid swelling mainly lower. No URI nor eye discharge per pt. I would consider irritation of the area. Pt denies rubbing eye but very short term memory deficit. Had injury days ago but consider some orbital injury or such. Can get CT. ), d/w patient Departure - Departure Disposition: 01 Home, Self Care Clinical Impression: Accidental fall, Periorbital edema of both eyes Condition: Stable Record reviewed to determine appropriate education?: Yes Follow-Up: Sidra Hurley ARNP [Primary Care Provider] - Prescriptions: Erythromycin Base [Erythromycin Ophthalmic Ointment] 1 applic EACHEYE QID 3 Days #3.5 gm Comments: The CT scan of the head and the orbits does not show any signs of bleeding or swelling or upper facial fractures. I do not see an injury that would account for swelling of the eyelids and around the eye area per se. There may have been some jostling injury and just a mild swelling. Other consideration may be inflammation just of the eyelids and conjunctiva, such as allergies or early infection. See how you do in the next day or 2; if you develop any crustiness or discharge or matting, then add an antibiotic ointment for the eyelids and just slightly on the inner eyelid as well. If this just clears up in the next couple of days then no other particular treatment needed. Forms: PCP List Discharge Date/Time: 11/05/23 18:30
--- NOTE | 2023-11-05 18:38 | CT Report ---
PROCEDURE: HEAD WO INDICATIONS: fall struck head, with bruising showing periorbita TECHNIQUE: Noncontrast 4.5 mm thick angled axial sections acquired from the foramen magnum to the vertex. For r adiation dose reduction, the following was used: automated exposure control, adjustment of mA and/or kV according to patient size. COMPARISON: 05/09/2019 FINDINGS: Image quality: Excellent. CSF spaces: Basal cisterns are patent. No extra-axial fluid collections. The ventricles are symmet yeison in size and shape. Brain: No intracranial bleeds or masses. There is cerebral volume loss for age, with resultant vent ricular and sulcal prominence. There are periventricular and deep white matter chronic small vessel ischemic changes. There is intracranial internal carotid artery atherosclerosis. Skull and face: Calvarium and visualized facial bones appear intact, without suspicious lesions. Sinuses: Mild mucosal thickening in left maxillary sinus is seen. Rest of the visualized sinuses and mastoids are clear. IMPRESSION: No CT evidence of acute intracranial abnormalities. Reviewed by: Luca Barlow MD on 11/05/2023 6:37 PM PST Approved by: Luca Barlow MD on 11/05/2023 6:37 PM PST Station ID: [id number]
[2023-11-05 18:40] VITALS: BP 143/89; O2SAT 98
== END 2023-11-05 18:30 | disposition home or self-care (01) ==
LOC: ED 16:46
DX: H02.845 Edema of left lower eyelid (principal); H02.842 Edema of right lower eyelid; W19.XXXA Unspecified fall, initial encounter
CPT/HCPCS: 99283; 99284

== ENCOUNTER 2023-12-26 08:00 | Outpatient (CLI) | payer MEDICARE, OTHER | END 2023-12-26 23:59 | disposition home or self-care (01) | LOC: LAB.N 08:00 | PROVIDERS: ATTEND Registered Nurse | DX: R30.0 Dysuria (principal) | CPT/HCPCS: 87086 ==

== ENCOUNTER 2024-03-11 15:52 | Emergency (ER) | payer MEDICARE, OTHER ==
[2024-03-11 17:44] LABS: BILIRUBIN,URINE NEGATIVE (NEGATIVE); GLUCOSE, URINE (UA) NEGATIVE (NEGATIVE); KETONES,URINE (UA) NEGATIVE (NEGATIVE); LEUKOCYTE ESTERASE, URINE NEGATIVE (NEGATIVE); NITRITE,URINE NEGATIVE (NEGATIVE); OCCULT BLOOD,URINE NEGATIVE (NEGATIVE); PROTEIN,URINE NEGATIVE (NEGATIVE); UROBILINOGEN,URINE 0.2 (NORMAL) E.U./dL (NORMAL)
[2024-03-11 17:45] LABS: CLARITY,URINE CLEAR (CLEAR)
--- NOTE | 2024-03-11 17:51 | ED Physician Documentation ---
PD HPI FEMALE - Stated complaint Stated Complaint: - Chief complaint Chief Complaint: UTI - History obtained from History obtained from: Family - Additional information Additional information: This is a romina but demented 83-year-old woman who presents with her for evaluation of what they think is likely a bladder infection. The history is from the due to her dementia. Starting with the last day or so she is developed significant urinary frequency but no other complaints. States she gets about 6 UTIs per year and is seeking urologic consultation as an outpatient which I shared is very appropriate. No fevers or flank pain. 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 : Other HEENT: None Psych: Depression, Anxiety Musculoskeletal: Osteoporosis Derm: None - Past Surgical History Past Surgical History: Yes /OPEN DEVELOPER OPERATOR: Other HEENT: Tonsil/Adenoidectomy - Present Medications Home Medications: Ambulatory Orders Medication Instructions Recorded Confirmed levETIRAcetam [Keppra] 500 mg PO BID 01/05/23 03/11/24 Estrogens, Conjugated Cream 1 gm VG QPM #90 gm 03/11/24 [Premarin Cream] - Allergies Allergies/Adverse Reactions: Allergies Allergy/AdvReac Type Severity Reaction Status Date / Time No Known Drug Allergies Allergy Verified 03/11/24 16:38 - Social History Does the pt smoke?: No Smoking Status: Never smoker Does the pt drink ETOH?: No Does the pt have substance abuse?: No - Immunizations Immunizations are current?: Yes - POLST Patient has POLST: No PD ED PE NORMAL - General General: No acute distress - Abdomen Abdomen: Soft, Non tender - Female Female : Used [employer] present (Gilda CRANE), Other (Does look like she has some atrophic vaginitis) - Back Back: No CVA TTP Results - Vitals Vitals: Vital Signs - 24 hr 03/11/24 16:38 Temperature 36.2 C L Heart Rate 79 Respiratory 18 Rate Blood Pressure 153/75 H O2 Saturation 100 Oxygen O2 Source Room air - Labs Labs: Laboratory Tests 03/11/24 17:27 Urine Color STRAW Urine Clarity CLEAR Urine pH 7.0 Ur Specific Hermann <=1.005 Urine Protein NEGATIVE Urine Glucose (UA) NEGATIVE Urine Ketones NEGATIVE Urine Occult Blood NEGATIVE Urine Nitrite NEGATIVE Urine Bilirubin NEGATIVE Urine Urobilinogen 0.2 (NORMAL) Ur Leukocyte Esterase NEGATIVE Ur Microscopic Review NOT INDICATED Urine Culture Comments NOT INDICATED PD Medical Decision Making - ED course ED course: 83-year-old woman with dementia presents with urinary frequency. Her urinalysis is negative/normal so recurrent cystitis is not likely. Will perform pelvic examination to evaluate for rashes or other anatomic abnormalities. Departure - Departure Disposition: 01 Home, Self Care Clinical Impression: Atrophic vaginitis Condition: Good Record reviewed to determine appropriate education?: Yes Instructions: ED Vaginitis Atrophic Prescriptions: Estrogens, Conjugated Cream [Premarin Cream] 1 gm VG QPM #90 gm Comments: Although I do not see any evidence of UTI today, on exam it does look like he may have was called atrophic vaginitis which is a common cause of frequent UTIs and women of a certain age. I am sending a prescription to [facility] in [place] for vaginal estrogen which may be helpful for you. You should still follow-up with the urologist as you are planning. Return for any worsening symptoms. Forms: PCP List
[2024-03-11 18:35] VITALS: BP 150/78; O2SAT 98
== END 2024-03-11 18:28 | disposition home or self-care (01) ==
LOC: ED 15:52
DX: N95.2 Postmenopausal atrophic vaginitis (principal); F03.90 Unspecified dementia, unspecified severity, without behavioral disturbance, psychotic disturbance, mood disturbance, and anxiety
CPT/HCPCS: 81001; 81003; 87086; 99283

== ENCOUNTER 2024-05-05 08:00 | Outpatient (CLI) | payer MEDICARE, OTHER ==
[2024-05-05 19:54] LABS: BILIRUBIN,URINE NEGATIVE (NEGATIVE); GLUCOSE, URINE (UA) NEGATIVE (NEGATIVE); KETONES,URINE (UA) NEGATIVE (NEGATIVE); LEUKOCYTE ESTERASE, URINE LARGE (NEGATIVE); NITRITE,URINE NEGATIVE (NEGATIVE); OCCULT BLOOD,URINE TRACE-INTA (NEGATIVE); PH,URINE 6.5 PH (5.0-7.5); PROTEIN,URINE NEGATIVE (NEGATIVE); UROBILINOGEN,URINE 0.2 (NORMAL) E.U./dL (NORMAL)
[2024-05-05 19:56] LABS: CLARITY,URINE CLOUDY (CLEAR)
[2024-05-05 20:16] LABS: BACTERIA,URINE Moderate /HPF (None Seen); RBC,URINE 0-5 /HPF (0-5); SQUAMOUS EPITHELIAL CELL,UR NONE SEEN (<= Few); WBC,URINE >25 /HPF (0-5)
== END 2024-05-05 23:59 | disposition home or self-care (01) ==
LOC: LAB.S 08:00
PROVIDERS: ATTEND Registered Nurse
DX: R30.0 Dysuria (principal)
CPT/HCPCS: 81001; 81003

== ENCOUNTER 2024-05-19 08:25 | Outpatient (CLI) | payer MEDICARE, OTHER ==
[2024-05-19 15:14] LABS: BILIRUBIN,URINE NEGATIVE (NEGATIVE); GLUCOSE, URINE (UA) NEGATIVE (NEGATIVE); KETONES,URINE (UA) NEGATIVE (NEGATIVE); LEUKOCYTE ESTERASE, URINE LARGE (NEGATIVE); NITRITE,URINE NEGATIVE (NEGATIVE); OCCULT BLOOD,URINE SMALL (NEGATIVE); PH,URINE 8.5 PH (5.0-7.5); PROTEIN,URINE TRACE mg/dL (NEGATIVE); UROBILINOGEN,URINE 0.2 (NORMAL) E.U./dL (NORMAL)
[2024-05-19 15:28] LABS: CLARITY,URINE CLOUDY (CLEAR)
[2024-05-19 15:41] LABS: CALCIUM 9.3 mg/dL (8.5-10.3); CREATININE 0.8 mg/dL (0.6-1.3)
[2024-05-19 17:08] LABS: BACTERIA,URINE Many /HPF (None Seen); RBC,URINE 0-5 /HPF (0-5); SQUAMOUS EPITHELIAL CELL,UR MANY Squamous (<= Few); WBC,URINE >25 /HPF (0-5)
== END 2024-05-19 08:26 | disposition home or self-care (01) ==
LOC: LAB.S 08:25
PROVIDERS: ATTEND Registered Nurse
DX: R60.0 Localized edema (principal); R30.0 Dysuria
CPT/HCPCS: 36415; 80048; 81001; 81003; 83880

== ENCOUNTER 2024-05-20 23:16 | Emergency (ER) | payer MEDICARE, OTHER ==
[2024-05-20 23:45] VITALS: BP 144/72; O2SAT 100
== END 2024-05-21 00:32 | disposition left against medical advice (07) ==
LOC: ED 23:16
DX: Z53.21 Procedure and treatment not carried out due to patient leaving prior to being seen by health care provider (principal)